=== PATIENT | male | born 1970 | race Caucasian/White ===

== ENCOUNTER → 2019-06-15 14:26 | Outpatient (CLI) | payer MEDICAID, SELFPAY ==
[2019-06-15 14:40] LABS: Basophils # 0.1 K/mm3 (0-0.2); Basophils % 0.8 % (0.1-2.0); Eosinophils # 0.1 K/mm3 (0.0-0.4); Eosinophils % 1.8 % (0.1-12.0); Hematocrit 49.2 % (42.0-52.0); Lymphocytes # 1.3 K/mm3 (0.7-4.5); Lymphocytes % 17.4 % (10-50); Mean Corpuscular HGB Conc 32.6 g/dL (31.8-35.4); Mean Corpuscular Hemoglobin 31.8 pg (27.0-31.2); Mean Corpuscular Volume 97.4 fl (80-94); Mean Platelet Volume 8.4 fl (7.4-10.4); Monocytes # 0.6 K/mm3 (0.1-1.0); Monocytes % 7.9 % (1.7-9.3); Neutrophils # 5.4 K/mm3 (1.8-7.8); Neutrophils % 72.2 % (37.0-80.0); Platelet Count 242 K/mm3 (142-424); Red Blood Count 5.05 M/mm3 (4.60-6.20); Red Cell Distribution Width 12.3 % (11.5-17.5); White Blood Count 7.4 K/mm3 (4.8-10.8)
[2019-06-15 14:48] LABS: Chloride 101 mmol/L (98-107); Potassium 4.3 mmoL/L (3.5-5.1); Sodium 135 mmol/L (136-145)
[2019-06-15 14:51] LABS: Alanine Aminotransferase 40 U/L (12-78); Albumin Level 4.3 g/dl (3.5-5.0); Albumin/Globulin Ratio 1.4 (1.1-1.8); Alkaline Phosphatase 64 U/L (38-126); Anion Gap 15.3 mEq/L (5-15); Aspartate Amino Transferase 32 U/L (17-59); Bilirubin,Total 0.6 mg/dl (0.2-1.3); Blood Urea Nitrogen 10 mg/dl (9-20); Calcium 9.6 mg/dl (8.4-10.2); Carbon Dioxide 23 mmol/L (22.0-30.0); Cholesterol 187 mg/dl (140-200); Estimated Glomerular Filt Rate 102 ml/min (>60); GFR (African American) 123 ML/MIN (>60); Glucose 96 mg/dl (74-100); Total Protein,Serum 7.3 g/dl (6.3-8.2); Triglycerides 135 mg/dl (30-150); VLDL Cholesterol 27 mg/dL (0-40)
[2019-06-15 14:52] LABS: Chol/HDL Ratio 3.9 (1-3.5); HDL Cholesterol 48 mg/dl (40-60)
[2019-06-15 15:02] LABS: Direct LDL Cholesterol 118.81 mg/dL (100-129)
[2019-06-15 15:47] LABS: T4 (Thyroxine) 8.5 ug/dl (5.53-11.0)
== END ==
PROVIDERS: Visit Provider Physician Assistant
DX: I10 Essential (primary) hypertension (principal); E03.9 Hypothyroidism, unspecified; E55.9 Vitamin D deficiency, unspecified; Z79.899 Other long term (current) drug therapy
CPT/HCPCS: 80053; 80061; 82652; 84436; 84443; 85025

== ENCOUNTER 2019-11-12 09:19 | Emergency (ER) | payer MEDICAID, SELFPAY ==
[2019-11-12 09:28] VITALS: BP 153/72; PULSE 78; RESP 16; TEMP 36.7; O2SAT 99; BMI 25.1
--- NOTE | 2019-11-12 10:04 | HMH.EDGENADL ---
ED Disposition Clinical Impression: Bug bite Qualifiers: Encounter type: initial encounter Qualified Code(s): W57.XXXA - Bitten or stung by nonvenomous insect and other nonvenomous arthropods, initial encounter Disposition: Home, Self-Care Condition on Discharge: Good Instructions: DI for Insect Bites and Stings Additional Instructions: Kenalog cream. Benadryl by mouth for itching. Ice and ibuprofen as needed for pain. Follow-up with primary care provider if having severe pain or fever. Prescriptions: Triamcinolone Acetonide [Kenalog 0.1% cream 30gm tube] 1 applic TOPICAL TID #30 cream..g. Transmission Status: Received by [facility] Referrals: Adam Serna MD [Primary Care Provider] - - Critical Care Critical Care Time: No Attestation: On 11/12/19, the high probability of a clinically significant, sudden or life threatening deterioration of the following system(s) required my full and direct attention, intervention and personal management. The time I documented below is in addition to time spent performing reported procedures but includes the following listed in this critical care notation. Medical Decision Making - Ashish Inquiry Pt receiving controlled substance: No Vital Signs: 11/12/19 09:28 11/12/19 10:39 Temperature 98.1 F 98.1 F Temperature Source Oral Pulse Rate 78 Pulse Rate [Left Radial] 78 Respiratory Rate 16 16 Blood Pressure 153/72 H Blood Pressure [Left Arm] 153/72 H Blood Pressure Mean [Left Arm] 99 Blood Pressure Source Automatic Cuff Blood Pressure Source [Left Arm] Automatic Cuff Blood Pressure Position Sitting Blood Pressure Position [Left Arm] Sitting 02 Sat by Pulse Oximetry 99 Oxygen Delivery Method Room Air Room Air General Adult HPI - General Chief complaint: Skin/Abscess/Foreign Body Stated complaint: spider bite on shoulder Time Seen by Provider: 11/12/19 10:04 Mode of Arrival: Ambulatory Limitations: No Limitations Description of Symptoms (Recalled from ER Triage Doc. by RN): Pt reports possible spider bite on L shoulder blader. Redness and warmth noted to area. NO drainage noted. - History of Present Illness HPI narrative: Patient states that he was mowing with his shirt on about 4 days ago and got some sort of bite on his posterior left shoulder. He thought it might be a spider, but did not see anything that bit him. He has occasional itching. He has an irritation of the area that feels like a sunburn . He says that the area of redness has gotten just slightly larger in 4 days. He has not had a fever. - Related Data Previous Rx's Medication Instructions Recorded cholecalciferol (vitamin D3) 25 1,000 unit PO DAILY #90 cap 06/17/19 mcg (1,000 unit) capsule ergocalciferol (vitamin D2) 1,250 50,000 unit PO QWEEK 90 Days #12 09/07/19 mcg (50,000 unit) capsule cap levothyroxine 25 mcg tablet 25 mcg PO DAILY #90 tab 09/07/19 lisinopril 10 1 tab PO DAILY #90 tab 09/07/19 mg-hydrochlorothiazide 12.5 mg tablet omeprazole 40 mg capsule,delayed 40 mg PO DAILY #90 cap 09/07/19 release Triamcinolone Acetonide [Kenalog 1 applic TOPICAL TID #30 cream..g. 11/12/19 0.1% cream 30gm tube] Allergies Allergy/AdvReac Type Severity Reaction Status Date / Time tetanus and diphtheria Allergy Mild Verified 06/19/19 13:42 toxoids [TETANUS AND DIPHTHERIA TOXOIDS] [facility] History - Hepatitis A Screen Drug use history?: No High risk sexual behaviors?: No History of sexually transmitted infection?: No Currently employed?: No Childcare worker?: No Do you have indoor plumbing?: Yes Do you have electricity?: Yes Attestation statement:: This patient has been screened for Hepatitis A risk factors. I have reviewed the patient's past medical history: Yes Medical History: Reports:: Hypertension Denies:: Diabetes Mellitus Type 1, Diabetes Mellitus Type 2 Other Medical History: Reports: Hypothyroidism Other Surgeries:
[2019-11-12 10:39] VITALS: BP 153/72; PULSE 78; RESP 16; TEMP 36.7; O2SAT 99
== END 2019-11-12 10:40 | disposition home or self-care (01) ==
PROVIDERS: Emergency Provider Emergency Medicine; PCP Emergency Medicine
DX: S40.262A Insect bite (nonvenomous) of left shoulder, initial encounter (principal); W57.XXXA Bitten or stung by nonvenomous insect and other nonvenomous arthropods, initial encounter; I10 Essential (primary) hypertension; E03.9 Hypothyroidism, unspecified; F17.210 Nicotine dependence, cigarettes, uncomplicated; Z88.7 Allergy status to serum and vaccine
CPT/HCPCS: 99281

== ENCOUNTER 2019-12-26 16:35 | Emergency (ER) | payer MEDICAID, SELFPAY ==
[2019-12-26 16:43] VITALS: BP 146/78; PULSE 91; RESP 16; TEMP 36.9; O2SAT 99; BMI 27.6
[2019-12-26 16:58] VITALS: BP 146/78; PULSE 91; RESP 16; TEMP 36.9; O2SAT 99; BMI 27.6
--- NOTE | 2019-12-26 17:24 | HMH.EDUTC ---
[facility] [place]ression: Skin problem Disposition: Home, Self-Care Condition on Discharge: Good Instructions: Lyme Disease, DI for Lyme Disease Additional Instructions: Take medication as prescribed FOllow up with Family Doctor to get the result of your test next week Return if needed Straight to ER if any worsening of symptoms Prescriptions: Doxycycline Hyclate [Doxycycline 100mg Capsule] 100 mg PO BID 10 Days #20 cap Transmission Status: Received by [facility] Referrals: Adam Serna MD [Primary Care Provider] - As needed Time of Disposition: 17:39 Medical Decision Making - Ashish Inquiry Pt receiving controlled substance: No Ashish was queried for this patient: No Vital Signs: 12/26/19 16:43 12/26/19 16:58 12/26/19 17:50 Temperature 98.5 F 98.5 F 98.5 F Temperature Source Oral Oral Pulse Rate 91 H Pulse Rate [Left Radial] 91 H 91 H Respiratory Rate 16 16 16 Blood Pressure 146/78 H Blood Pressure [Right Arm] 146/78 H 146/78 H Blood Pressure Mean [Right Arm] 100 100 Blood Pressure Source [Right Arm] Automatic Cuff Automatic Cuff Blood Pressure Position [Right Arm] Sitting Sitting 02 Sat by Pulse Oximetry 99 99 Oxygen Delivery Method Room Air Room Air Orders (Tests/Meds): ORDERS Category Date Time Status Lyme, Total Ab Test/Reflex Stat Lab 12/26/19 17:40 Received Medical Decision Narrative: Discussed with patient and he advised he was bitten by something the last of October on his left shoulder area and was seen in ER then with PCP states that he has taken antibiotics and steriod cream and it hasnt helped and red circular area has continued to spread States that he is unsure what may have bitten Patient unsure if may have been bitten by tick and with appearance of redness in circular pattern recommended blood testing for lyme disease and will start patient on Doxycycline and have him follow up with PCP for results of testing and to see if medication is helping to clear skin redness [facility] [place] - General Stated complaint: spider bite left arm,stinging Time Seen by Provider: 12/26/19 17:24 Mode of Arrival: Ambulatory Source of Information: Patient Limitations: No Limitations Description of Symptoms (Recalled from Triage Doc. by RN): PATIENT C/O ITCHING AND REDNESS AROUND A POSSIBLE SPIDER THAT HE GOT APPROX 2 WEEKS AGO HEENT Symptoms (Recalled from RN notes): No Resp Symptoms (Recalled from RN notes): No Skin Symptoms (Recalled from RN notes): Yes MS Symptoms (Recalled from RN notes): No Functional Status (Recalled from RN notes): WNL - History of Present Illness Provider Complaint: Patient states that he was bitten by something and thinks it was a spider several weeks ago States that he was given some keflex and finished off the medication but is still having some itching and redness around the bite area States that he noticed today that the redness was still there and looked bigger and spread on his back - Related Data Previous Rx's Medication Instructions Recorded cholecalciferol (vitamin D3) 25 1,000 unit PO DAILY #90 cap 06/17/19 mcg (1,000 unit) capsule ergocalciferol (vitamin D2) 1,250 50,000 unit PO QWEEK 90 Days #12 09/07/19 mcg (50,000 unit) capsule cap Triamcinolone Acetonide [Kenalog 1 applic TOPICAL TID #30 cream..g. 11/12/19 0.1% cream 30gm tube] cephalexin 500 mg capsule 500 mg PO TID #30 cap 11/21/19 valacyclovir 1 gram tablet 1,000 mg PO Q8H #30 tab 11/21/19 levothyroxine 25 mcg tablet See Rx Instructions .ROUTE 12/05/19 .COMPLEX #90 unspecified lisinopril 10 See Rx Instructions .ROUTE 12/05/19 mg-hydrochlorothiazide 12.5 mg .COMPLEX #90 unspecified tablet omeprazole 40 mg capsule,delayed See Rx Instructions .ROUTE 12/05/19 release .COMPLEX #90 unspecified Doxycycline Hyclate [Doxycycline 100 mg PO BID 10 Days #20 cap 12/26/19 100mg Capsule] Allergies Allergy/AdvReac Type Severity Reaction Status Date / Time t
[2019-12-26 17:50] VITALS: BP 146/78; PULSE 91; RESP 16; TEMP 36.9; O2SAT 99
[2020-01-04 03:59] LABS: IgG P18 Ab. Present (.); IgG P23 Ab. Absent (.); IgG P28 Ab. Absent (.); IgG P30 Ab. Absent (.); IgG P39 Ab. Absent (.); IgG P41 Ab. Present (.); IgG P45 Ab. Absent (.); IgG P58 Ab. Absent (.); IgG P66 Ab. Absent (.); IgG P93 Ab. Absent (.); IgM P23 Ab. Present (.); IgM P39 Ab. Absent (.); IgM P41 Ab. Absent (.)
[2020-01-04 08:41] LABS: Lyme IgG WB Interp. Negative (.); Lyme IgM WB Interp. Negative (.)
== END 2019-12-26 17:52 | disposition home or self-care (01) ==
PROVIDERS: Emergency Provider Nurse Practitioner; PCP Emergency Medicine
DX: S40.262A Insect bite (nonvenomous) of left shoulder, initial encounter (principal); L08.9 Local infection of the skin and subcutaneous tissue, unspecified; I10 Essential (primary) hypertension; E03.9 Hypothyroidism, unspecified; F17.210 Nicotine dependence, cigarettes, uncomplicated; Z88.7 Allergy status to serum and vaccine
CPT/HCPCS: 86617; 86618; 99201

== ENCOUNTER 2020-02-22 01:45 | Emergency (ER) | payer MEDICAID, SELFPAY ==
[2020-02-22 01:47] VITALS: BP 143/76; PULSE 91; RESP 18; TEMP 37.8; O2SAT 97; BMI 27.6
[2020-02-22 02:30] VITALS: BP 140/76; PULSE 83; RESP 17; O2SAT 97
[2020-02-22 03:00] VITALS: BP 130/79; PULSE 81; RESP 17; O2SAT 96
--- NOTE | 2020-02-22 03:06 | HMH.EDGENADL ---
ED Disposition Clinical Impression: Cryptitis, anal Disposition: Home, Self-Care Condition on Discharge: Good Instructions: DI for Acute Pain -- Adult Additional Instructions: use meds and see surg and pcp for follow up Prescriptions: cephALEXin [Keflex 500mg Cap] 500 mg PO TID #30 cap Transmission Status: Pending to [facility] Referrals: Adam Serna MD [Primary Care Provider] - Lico Johnson MD [Staff Physician] - - Critical Care Critical Care Time: No Attestation: On 02/22/20, the high probability of a clinically significant, sudden or life threatening deterioration of the following system(s) required my full and direct attention, intervention and personal management. The time I documented below is in addition to time spent performing reported procedures but includes the following listed in this critical care notation. Medical Decision Making - Medical Records Medical records reviewed: Yes: I reviewed the patient's medical records. - Ashish Inquiry Pt receiving controlled substance: No Vital Signs: 02/22/20 01:47 02/22/20 02:30 Temperature 100.0 F H Temperature Source Oral Pulse Rate [Left Radial] 91 H 83 Respiratory Rate 18 17 Blood Pressure [Right Arm] 143/76 H 140/76 Blood Pressure Mean [Right Arm] 98 97 Blood Pressure Source [Right Arm] Automatic Cuff Automatic Cuff Blood Pressure Position [Right Arm] Supine Supine 02 Sat by Pulse Oximetry 97 97 Oxygen Delivery Method Room Air Room Air - Lab Data Lab results reviewed: Yes: I reviewed the patient's lab results. General Adult HPI - General Chief complaint: PAIN Stated complaint: Pain in rectal area Time Seen by Provider: 02/22/20 03:06 Mode of Arrival: Ambulatory Source of Information: Patient, Medical Record Limitations: No Limitations Description of Symptoms (Recalled from ER Triage Doc. by RN): Pt c/o rectal pain for 5 days. Pt states he was doing some heavy lifting last week and thinks he has a hemroid. Pt denies blood in stool. - History of Present Illness HPI narrative: rectal pain over the last 5 days w/o fever or bleeding Onset (ago): day(s) Severity: moderate Associated symptoms: denies other symptoms - Related Data Home Medications Medication Instructions Recorded Confirmed Cholecalciferol (Vitamin D3) 1,000 unit PO DAILY 02/22/20 02/22/20 [Vitamin D3 1,000 Unit Cap] Ergocalciferol (Vitamin D2) 50,000 unit PO QWEEK 02/22/20 02/22/20 [Drisdol] Levothyroxine Sodium [Synthroid 25 mcg PO DAILY 02/22/20 02/22/20 25mcg (0.025mg) tablet] Lisinopril/Hydrochlorothiazide 10 - 12.5 mg PO DAILY 02/22/20 02/22/20 [Lisinopril-Hctz 10-12.5 mg Tab] Omeprazole 40 mg PO DAILY 02/22/20 02/22/20 Previous Rx's Medication Instructions Recorded cephALEXin [Keflex 500mg Cap] 500 mg PO TID #30 cap 02/22/20 Allergies Allergy/AdvReac Type Severity Reaction Status Date / Time tetanus and diphtheria Allergy Mild Verified 11/21/19 14:37 toxoids [TETANUS AND DIPHTHERIA TOXOIDS] [facility] History - Hepatitis A Screen Drug use history?: No High risk sexual behaviors?: No History of sexually transmitted infection?: No Currently employed?: No Childcare worker?: No Do you have indoor plumbing?: Yes Do you have electricity?: Yes Attestation statement:: This patient has been screened for Hepatitis A risk factors. I have reviewed the patient's past medical history: Yes Medical History: Reports:: Hypertension Denies:: Cancer, Diabetes Mellitus Type 1, Diabetes Mellitus Type 2, Internal Pacemaker, MRSA Other Medical History: Reports: Hypothyroidism Other Surgeries: Yes: No Previous Surgery. No: Pacemaker Amputation: No Fractures: No - Social History Smoking Status: Current every day smoker Tobacco Type: cigarettes # Packs/Day (cigarettes): 2 Alcohol Intake: current Alcohol Intake Frequency:: 3 or more drinks per day Substance Use Type: denies use Occupational Status: e
[2020-02-22 03:13] VITALS: BP 100/67; PULSE 78; RESP 16; TEMP 36.8; O2SAT 98
== END 2020-02-22 03:29 | disposition home or self-care (01) ==
PROVIDERS: Emergency Provider Emergency Medicine; PCP Emergency Medicine
DX: K62.89 Other specified diseases of anus and rectum (principal); I10 Essential (primary) hypertension; E03.9 Hypothyroidism, unspecified; F17.210 Nicotine dependence, cigarettes, uncomplicated; Z88.7 Allergy status to serum and vaccine
CPT/HCPCS: 99282

== ENCOUNTER 2020-09-03 09:32 | Emergency (ER) | payer MEDICAID, SELFPAY ==
[2020-09-03 09:50] VITALS: BP 145/78; PULSE 78; RESP 20; TEMP 36.7; O2SAT 96; BMI 27.6
--- NOTE | 2020-09-03 10:08 | HMH.EDUTC ---
[facility] [place]: Muscle [place] Disposition: Home, Self-Care Condition on Discharge: Good Instructions: DI for Muscle Spasm Additional Instructions: if pain returns worsen or does not improve return or be seen in ed tylenol and motrin as needed for pain ice 20 mins and remove may repeat every hour Prescriptions: predniSONE [Prednisone 20mg Tab] 20 mg PO BID #10 tab Transmission Status: Pending to [facility] Referrals: Adam Serna MD [Primary Care Provider] - Forms: Work/School Release Time of Disposition: 10:13 Medical Decision Making - Ashish Inquiry Pt receiving controlled substance: No Vital Signs: 09/03/20 09:50 Temperature 98.1 F Temperature Source Oral Pulse Rate [Right Brachial] 78 Respiratory Rate 20 Blood Pressure [Right Arm] 145/78 H Blood Pressure Mean [Right Arm] 100 Blood Pressure Source [Right Arm] Automatic Cuff Blood Pressure Position [Right Arm] Sitting 02 Sat by Pulse Oximetry 96 Oxygen Delivery Method Room Air [facility] [place] - General Chief complaint: [facility] Stated complaint: allergies Time Seen by Provider: 09/03/20 10:08 Mode of Arrival: Ambulatory Source of Information: Patient Limitations: No Limitations Description of Symptoms (Recalled from Triage Doc. by RN): PATIENT C/O INTERMITTEN NECK STIFFNESS, HEADACHE, AND SWELLING BEHIND BILATERAL EARS SINCE THIS WEEKEND HEENT Symptoms (Recalled from RN notes): Yes Resp Symptoms (Recalled from RN notes): No Skin Symptoms (Recalled from RN notes): No MS Symptoms (Recalled from RN notes): No Functional Status (Recalled from RN notes): WNL - History of Present Illness Provider Complaint: 50 yr old male presents for suzan pain behind ears, stiff neck that comes and goes, and soreness. pt states this am stiff neck is fine but later the stiff will prob return. pt denies fever - Related Data Home Medications Medication Instructions Recorded Confirmed Levothyroxine Sodium [Synthroid 25 mcg PO DAILY 09/03/20 09/03/20 25mcg (0.025mg) tablet] Lisinopril/Hydrochlorothiazide 1 tab PO DAILY 09/03/20 09/03/20 [Lisinopril-Hctz 10-12.5 mg Tab] Omeprazole 40 mg PO DAILY 09/03/20 09/03/20 Previous Rx's Medication Instructions Recorded predniSONE [Prednisone 20mg 20 mg PO BID #10 tab 09/03/20 Tab] Allergies Allergy/AdvReac Type Severity Reaction Status Date / Time tetanus and diphtheria Allergy Mild Verified 06/27/20 14:33 toxoids [TETANUS AND DIPHTHERIA TOXOIDS] - Worker's Comp Is this a Worker's Comp case?: No [facility] History - Hepatitis A Screen Drug use history?: No High risk sexual behaviors?: No History of sexually transmitted infection?: No Currently employed?: No Childcare worker?: No Do you have indoor plumbing?: Yes Do you have electricity?: Yes Attestation statement:: This patient has been screened for Hepatitis A risk factors. I have reviewed the patient's past medical history: Yes Medical History: Reports:: Hypertension Denies:: Cancer, Diabetes Mellitus Type 1, Diabetes Mellitus Type 2, Internal Pacemaker, MRSA Other Medical History: Reports: Hypothyroidism Other Surgeries: Yes: No Previous Surgery. No: Pacemaker Amputation: No Fractures: No - Social History Smoking Status: Current every day smoker Tobacco Type: cigarettes # Packs/Day (cigarettes): 2 Alcohol Intake: never Alcohol Intake Frequency:: 3 or more drinks per day Substance Use Type: denies use Occupational Status: other Housing: house Family Hx:: Non-contributory ROS Obtained: Yes Systems reviewed as appropriate & no additional complaints - Constitutional Constitutional: Reports system reviewed and no additional complaints, except as docu, Denies anorexia, Denies chills, Denies fever(s) - Eyes Eyes: Reports system reviewed and no additional complaints, except as docu, Denies blurry vision, Denies loss of vision - ENT Ears, Nose, Mouth, and Thro
[2020-09-03 10:11] LABS: UTC Strep Screen (Rapid) Negative (Negative)
[2020-09-03 10:14] VITALS: BP 145/78; PULSE 78; RESP 20; TEMP 36.7; O2SAT 96
== END 2020-09-03 10:18 | disposition home or self-care (01) ==
PROVIDERS: Emergency Provider Nurse Practitioner Family; PCP Emergency Medicine
DX: M62.838 Other muscle spasm (principal); M54.2 Cervicalgia; R51.9 Headache, unspecified; I10 Essential (primary) hypertension; K21.9 Gastro-esophageal reflux disease without esophagitis; E03.9 Hypothyroidism, unspecified; Z79.899 Other long term (current) drug therapy
CPT/HCPCS: 87880; 99202; G0463

== ENCOUNTER 2020-11-12 09:30 | Emergency (ER) | payer MEDICAID, SELFPAY ==
[2020-11-12 09:30] VITALS: BP 147/79; PULSE 61; RESP 21; TEMP 36.8; O2SAT 98; BMI 27.6
--- NOTE | 2020-11-12 09:45 | XR_ITS ---
PROCEDURE: XR SHOULDER RT MIN 2V CLINICAL INDICATION: PAIN COMPARISON: No exams were available for comparison FINDINGS: No acute fractures or dislocations. Bone density is normal. No periarticular calcifications. Visualized right hemithorax is unremarkable. No significant soft tissue abnormality. IMPRESSION: No acute findings. Dictated by: Tamara Leon 11/12/2020 10:20 Tamara Leon in OV 11/12/2020 10:20
--- NOTE | 2020-11-12 09:46 | HMH.EDUTC ---
[facility] [place] Clinical Impression: Muscle spasm Shoulder strain Qualifiers: Encounter type: initial encounter Laterality: right Qualified Code(s): S46.911A - Strain of unspecified muscle, fascia and tendon at shoulder and upper arm level, right arm, initial encounter Disposition: Home, Self-Care Condition on Discharge: Good Instructions: DI for Shoulder Pain, Methocarbamol, DI for Muscle Spasm Additional Instructions: *Ibuprofen dalia 6 hours with meal as needed for pain/inflammation *Not additional anti-inflammatory like motrin, aleve, advil with the above amount of ibuprofen. You can still take Tylenol every 4 hours as needed if you need something else for pain *Ice 20 minutes every 2 hours for the first 48 hours after the initial injury followed by moist heat every 20 minutes 3-4 times a day to affected area *Muscle relaxer as prescribed as needed for muscle spasms but remember, it WILL cause drowsiness You cannot take it and drive, operate machinery or care for small children. *Keep this area active, no movement leads to more stiffness, However take it easy and avoid heavy lifting pushing or pulling *Follow up with you family doctor if no improvement for further treatment Return if needed Straight to ER if any life threatening symptoms Prescriptions: methylPREDNISolone [Medrol 4mg tab] 4 mg PO DIRECTED #21 tab Transmission Status: Received by [facility] methocarbamoL [Methocarbamol 500mg Tablet] 500 mg PO BID PRN #10 tab PRN Reason: Muscle Spasm Transmission Status: Received by [facility] Referrals: Adam Serna MD [Primary Care Provider] - As needed Time of Disposition: 10:06 Medical Decision Making - Ashish Inquiry Pt receiving controlled substance: No Ashish was queried for this patient: No Vital Signs: 11/12/20 09:30 11/12/20 10:15 Temperature 98.3 F 98.3 F Temperature Source Oral Pulse Rate 61 Pulse Rate [Right Brachial] 61 Respiratory Rate 21 21 Blood Pressure 147/79 H Blood Pressure [Right Arm] 147/79 H Blood Pressure Mean [Right Arm] 101 Blood Pressure Source [Right Arm] Automatic Cuff Blood Pressure Position [Right Arm] Sitting 02 Sat by Pulse Oximetry 98 Oxygen Delivery Method Room Air - Radiology Data #1 Image(s): Shoulder Image Reviewed: Yes I reviewed the patient's radiology image Preliminary Findings: No Fracture Seen Medical Decision Narrative: Patient states that he has taken Medrol in the past without complication or reactions [facility] [place] - General Stated complaint: pulled muscle 11/08, neck/shoulder pain Time Seen by Provider: 11/12/20 09:46 Mode of Arrival: Ambulatory Source of Information: Patient Limitations: No Limitations Description of Symptoms (Recalled from Triage Doc. by RN): PATIENT C/O NECK, BACK AND SHOULDER PAIN AFTER PULLING A MUSCLE ON THURSDAY HEENT Symptoms (Recalled from RN notes): No Resp Symptoms (Recalled from RN notes): No Skin Symptoms (Recalled from RN notes): No MS Symptoms (Recalled from RN notes): Yes Functional Status (Recalled from RN notes): WNL - History of Present Illness Provider Complaint: Patient states that he was in an odd position working on something on and pulled a muscle in his neck and upper back area States that he has been having muscle tightness and spasms since and he had a previous injury to his right shoulder and thinks he may have aggrivated it states that when he moves his shoulder he feels like it is 'popping and wanted to get that checked too States that he can move the shoulder but it feels tight and hurts at times denies falling - Related Data Home Medications Medication Instructions Recorded Confirmed Levothyroxine Sodium [Synthroid 25 mcg PO DAILY 11/12/20 11/12/20 25mcg (0.025mg) tablet] Lisinopril/Hydrochlorothiazide 1 tab PO DAILY 11/12/20 11/12/20 [Zestoretic 10/12.5mg tablet] Omeprazole 40 mg PO DAILY 11/12/20 11/12/20 Previous Rx's [facility]
[2020-11-12 10:15] VITALS: BP 147/79; PULSE 61; RESP 21; TEMP 36.8; O2SAT 98
== END 2020-11-12 10:27 | disposition home or self-care (01) ==
PROVIDERS: Emergency Provider Nurse Practitioner; PCP Emergency Medicine
DX: S46.911A Strain of unspecified muscle, fascia and tendon at shoulder and upper arm level, right arm, initial encounter (principal); X50.0XXA Overexertion from strenuous movement or load, initial encounter; Y92.9 Unspecified place or not applicable; I10 Essential (primary) hypertension
CPT/HCPCS: 73030; 99202; G0463

== ENCOUNTER 2021-03-08 10:07 | Emergency (ER) | payer MEDICAID, SELFPAY ==
[2021-03-08 10:20] VITALS: BP 150/85; PULSE 73; RESP 19; TEMP 37; O2SAT 97; BMI 27.6
--- NOTE | 2021-03-08 10:46 | HMH.EDUTC ---
[place] Disposition Clinical Impression: Dizziness Disposition: Home, Self-Care Condition on Discharge: Good Instructions: Combating Dizziness in Older Adults Additional Instructions: Make sure to not make any sudden movements slow steady movements may help prevent dizziness Return if needed Recommend going straight to ER if symptoms return or worse Straight to ER if any life threatening symptoms Take Meclizine as prescribed and follow up if no improvement Prescriptions: Meclizine HCl [Antivert 12.5mg tablet] 12.5 mg PO Q8HP PRN #6 tab PRN Reason: Dizziness Transmission Status: Received by [facility] Referrals: Adam Serna MD [Primary Care Provider] - As needed Forms: Work/School Release Medical Decision Making - Ashish Inquiry Pt receiving controlled substance: No Ashish was queried for this patient: No Vital Signs: 03/08/21 10:20 03/08/21 11:23 Temperature 98.6 F 98.6 F Temperature Source Oral Pulse Rate 73 Pulse Rate [Right Brachial] 73 Respiratory Rate 19 19 Blood Pressure 150/85 H Blood Pressure [Right Arm] 150/85 H Blood Pressure Mean [Right Arm] 106 Blood Pressure Source [Right Arm] Automatic Cuff Blood Pressure Position [Right Arm] Sitting 02 Sat by Pulse Oximetry 97 Oxygen Delivery Method Room Air Orders (Tests/Meds): ED MEDICATIONS Discontinued Medications Generic Name Dose Route Start Last Admin Trade Name Freq PRN Reason Stop Dose Admin Meclizine HCl 12.5 mg 03/08/21 10:53 03/08/21 10:57 Meclizine 25mg Tablet PO 03/08/21 10:54 12.5 mg ONCE ONE Administration Medical Decision Narrative: Discussed with patient and recommended transfer to the ED for further work up and evaluation and patient declined States that he has had episodes like this in the past and took Meclizine and it helped Medication discussed with pharmacy Patient states that dizziness is much better and now gone after medication again discussed with patient about transfer to the ED for further work up and he still declined states that he feels much better now [place] HPI - General Stated complaint: light headed, dizzy Time Seen by Provider: 03/08/21 10:46 Mode of Arrival: Ambulatory Source of Information: Patient Limitations: No Limitations Description of Symptoms (Recalled from Triage Doc. by RN): PATIENT C/O DIZZINESS THAT STARTED HE WAS DRIVING TO WORK THIS MORNING HEENT Symptoms (Recalled from RN notes): Yes Resp Symptoms (Recalled from RN notes): No Skin Symptoms (Recalled from RN notes): No MS Symptoms (Recalled from RN notes): No Functional Status (Recalled from RN notes): WNL - History of Present Illness Provider Complaint: Patient states that he has a history of dizziness and use to take Meclizine States that earlier today he was driving into work and had an episode of dizziness and felt like it took a minute for his eyes to adjust States that it has been a little while since he has had any problems with it but yesterday he was working on something and had his neck crinked up States that now he is feeling better and dizziness has improved but he wanted to come in and get checked - Related Data Home Medications Medication Instructions Recorded Confirmed Levothyroxine Sodium [Synthroid 25 mcg PO DAILY 03/08/21 03/08/21 25mcg (0.025mg) tablet] Lisinopril/Hydrochlorothiazide 1 tab PO DAILY 03/08/21 03/08/21 [Zestoretic 10/12.5mg tablet] Previous Rx's Medication Instructions Recorded Meclizine HCl [Antivert 12.5mg 12.5 mg PO Q8HP PRN #6 tab 03/08/21 tablet] Allergies Allergy/AdvReac Type Severity Reaction Status Date / Time tetanus and diphtheria Allergy Mild Verified 06/27/20 14:33 toxoids [TETANUS AND DIPHTHERIA TOXOIDS] - Worker's Comp Is this a Worker's Comp case?: No [facility] History - Hepatitis A Screen Drug use history?: No High risk sexual behaviors?: No History of sexually transmitted infection?: No Curr
[2021-03-08 11:23] VITALS: BP 150/85; PULSE 73; RESP 19; TEMP 37; O2SAT 97
== END 2021-03-08 11:27 | disposition home or self-care (01) ==
PROVIDERS: Emergency Provider Nurse Practitioner; PCP Emergency Medicine
DX: R42 Dizziness and giddiness (principal); I10 Essential (primary) hypertension; E03.9 Hypothyroidism, unspecified; F17.210 Nicotine dependence, cigarettes, uncomplicated; Z88.7 Allergy status to serum and vaccine
CPT/HCPCS: 99202; G0463

== ENCOUNTER 2021-03-13 10:02 | Emergency (ER) | payer MEDICAID, SELFPAY ==
[2021-03-13 10:04] VITALS: BP 137/80; PULSE 79; RESP 16; TEMP 36.8; O2SAT 99; BMI 27.4
[2021-03-13 10:52] LABS: Basophils # 0.1 K/mm3 (0-0.2); Basophils % 1.1 % (0.1-2.0); Eosinophils # 0.1 K/mm3 (0.0-0.4); Eosinophils % 1.8 % (0.1-12.0); Hematocrit 53.6 % (42.0-52.0); Lymphocytes # 1.6 K/mm3 (0.7-4.5); Lymphocytes % 26.1 % (10-50); Mean Corpuscular HGB Conc 34.1 g/dL (31.8-35.4); Mean Corpuscular Hemoglobin 32.9 pg (27.0-31.2); Mean Corpuscular Volume 96.6 fl (80-94); Mean Platelet Volume 8.1 fl (7.4-10.4); Monocytes # 0.4 K/mm3 (0.1-1.0); Monocytes % 6.4 % (1.7-9.3); Neutrophils # 3.9 K/mm3 (1.8-7.8); Neutrophils % 64.6 % (37.0-80.0); Platelet Count 262 K/mm3 (142-424); Red Blood Count 5.55 M/mm3 (4.60-6.20); Red Cell Distribution Width 12.6 % (11.5-17.5)
[2021-03-13 10:59] LABS: Activated Partial Thrombo Time 27.6 seconds (22.8-30.6); INR 0.94 (0.9-1.1); Prothrombin Time 10.7 seconds (10.1-12.5)
[2021-03-13 11:02] LABS: Alanine Aminotransferase 36 U/L (12-78); Albumin Level 4.5 g/dl (3.5-5.0); Albumin/Globulin Ratio 1.3 (1.1-1.8); Alkaline Phosphatase 68 U/L (38-126); Anion Gap 12.2 mEq/L (5-15); Aspartate Amino Transferase 41 U/L (17-59); Bilirubin,Total 0.8 mg/dl (0.2-1.3); Blood Urea Nitrogen 14 mg/dl (9-20); Calcium 9.5 mg/dl (8.4-10.2); Carbon Dioxide 28 mmol/L (22.0-30.0); Chloride 99 mmol/L (98-107); Creatinine Clearance Estimated 147 mL/min (50-200); Estimated Glomerular Filt Rate 118 ml/min (>60); GFR (African American) 143 ML/MIN (>60); Globulin 3.4 g/dL (1.3-3.2); Glucose 112 mg/dl (74-100); Potassium 4.2 mmoL/L (3.5-5.1); Sodium 135 mmol/L (136-145); Total Protein,Serum 7.9 g/dl (6.3-8.2)
[2021-03-13 11:17] LABS: Troponin I < 0.01 ng/ml (0.00-0.034)
[2021-03-13 11:28] LABS: Hemoglobin 18.6 g/dL (14.1-18.0)
[2021-03-13 11:30] VITALS: BP 133/72; PULSE 72; O2SAT 94
[2021-03-13 11:45] VITALS: BP 133/72; PULSE 66; RESP 18; O2SAT 95
--- NOTE | 2021-03-13 11:49 | ECG_ITS ---
APPROVED REPORT Exam: Resting ECG HR:64 bpm ECG Measurements Heart Rate 64 AXES LA 136 P 67 QRSd 88 QRS 41 QT 394 T 33 QTc 406 Conclusion Normal sinus rhythm Normal ECG Electronically signed by : Pedro Garcia MD 03/14/2021 21:39:42
--- NOTE | 2021-03-13 13:01 | HMH.EDGENADL ---
ED Disposition Clinical Impression: GERD (gastroesophageal reflux disease) Disposition: Home, Self-Care Condition on Discharge: Good Referrals: Adam Serna MD [Primary Care Provider] - - Critical Care Critical Care Time: No Attestation: On 03/13/21, the high probability of a clinically significant, sudden or life threatening deterioration of the following system(s) required my full and direct attention, intervention and personal management. The time I documented below is in addition to time spent performing reported procedures but includes the following listed in this critical care notation. Medical Decision Making - Ashish Inquiry Pt receiving controlled substance: No Vital Signs: 03/13/21 10:04 03/13/21 11:30 03/13/21 11:45 Temperature 98.2 F Temperature Source Oral Pulse Rate 72 66 Pulse Rate [Right Radial] 79 Respiratory Rate 16 18 Blood Pressure 133/72 133/72 Blood Pressure [Right Arm] 137/80 Blood Pressure Mean 92 Blood Pressure Mean [Right Arm] 99 Blood Pressure Source [Right Arm] Automatic Cuff Blood Pressure Position [Right Arm] Sitting 02 Sat by Pulse Oximetry 99 94 L 95 Oxygen Delivery Method Room Air - Lab Data Lab Results 03/13/21 10:16: WBC 6.0, RBC 5.55, Hgb 18.6 H, Hct 53.6 H, MCV 96.6 H, MCH 32.9 H, MCHC 34.1, RDW 12.6, Plt Count 262, MPV 8.1, Neut % (Auto) 64.6, Lymph % (Auto) 26.1, Beadle % (Auto) 6.4, Eos % (Auto) 1.8, Baso % (Auto) 1.1, Neut # (Auto) 3.9, Lymph # (Auto) 1.6, Beadle # (Auto) 0.4, Eos # (Auto) 0.1, Baso # (Auto) 0.1 03/13/21 10:16: PT 10.7, INR 0.94, APTT 27.6 03/13/21 10:16: Sodium 135 L, Potassium 4.2, Chloride 99, Carbon Dioxide 28, Anion Gap 12.2, BUN 14, Creatinine 0.70, Estimated Creat Clear 147, Estimated GFR 118, Est GFR ( Amer) 143, Glucose 112 H, Calcium 9.5, Total Bilirubin 0.8, AST 41, ALT 36, Alkaline Phosphatase 68, Troponin I < 0.01, Total Protein 7.9, Albumin 4.5, Globulin 3.4 H, Albumin/Globulin Ratio 1.3 Result diagrams: 03/13/21 10:16 03/13/21 10:16 Orders (Tests/Meds): ED MEDICATIONS Discontinued Medications Generic Name Dose Route Start Last Admin Trade Name Amina PRN Reason Stop Dose Admin Aspirin 325 mg 03/13/21 10:35 03/13/21 11:32 Aspirin 325mg Tablet PO 03/13/21 10:36 325 mg ONCE ONE Administration Belladonna Alkaloids 60 ml 03/13/21 10:34 03/13/21 11:32 Gi Cocktail 60ml Udc PO 03/13/21 10:35 60 ml ONCE ONE Administration ORDERS Category Date Time Status Troponin I Q3H Lab 03/13/21 13:45 Ordered Troponin I Q3H Lab 03/13/21 16:45 Ordered Medical Decision Narrative: Patient is a 50-year-old male with past medical history of hypertension, hypothyroidism presenting to the ED for dizziness, chest pain. Patient is awake, alert, not in acute distress. Patient is hemodynamically stable, afebrile. Patient's physical exam is unremarkable. Includes but is not limited to chest pain secondary to sliding hiatal hernia, gastritis, low concern for ACS, unstable angina. Given this a CBC, CMP, troponin were performed. Patient was given aspirin, GI cocktail. His lab work is remarkable for a hemoglobin of 18, elevated hematocrit. Patient has no prior values in the computer to compare. First troponin is negative. Patient feels much better after the GI cocktail. Patient's likely source of chest pain was his hiatal hernia. Patient is to follow-up with his primary care physician regarding the elevated hemoglobin. Patient feels comfortable with this and is understanding of this. Patient is stable for discharge. Patient is given strict return precautions and follow-up instructions. General Adult HPI - General Chief complaint: Dizziness Stated complaint: head congestion, light headed, chest pain 03/12 Time Seen by Provider: 03/13/21 11:00 Mode of Arrival: Ambulatory Limitations: No Limitations Description of Symptoms (Recalled from ER Triage Doc. by RN): Pt c/o intermit
[2021-03-13 14:22] LABS: Troponin I < 0.01 ng/ml (0.00-0.034)
[2021-03-13 14:35] VITALS: BP 120/74; PULSE 68; RESP 14; TEMP 36.7; O2SAT 96
== END 2021-03-13 14:37 | disposition home or self-care (01) ==
PROVIDERS: Emergency Provider Emergency Medicine; PCP Emergency Medicine
DX: R07.9 Chest pain, unspecified (principal); R42 Dizziness and giddiness; K21.9 Gastro-esophageal reflux disease without esophagitis; I10 Essential (primary) hypertension; E03.9 Hypothyroidism, unspecified; F17.210 Nicotine dependence, cigarettes, uncomplicated
CPT/HCPCS: 80053; 84484; 85025; 85610; 85730; 93005; 99283

== ENCOUNTER → 2021-09-05 19:13 | Outpatient (CLI) | payer MEDICAID, SELFPAY ==
[2021-09-05 13:30] LABS: Basophils # 0.1 K/mm3 (0-0.2); Basophils % 0.9 % (0.1-2.0); Eosinophils # 0.1 K/mm3 (0.0-0.4); Eosinophils % 1.7 % (0.1-12.0); Hematocrit 53.2 % (42.0-52.0); Hemoglobin 17.6 g/dL (14.1-18.0); Lymphocytes # 1.5 K/mm3 (0.7-4.5); Lymphocytes % 20.1 % (10-50); Mean Corpuscular HGB Conc 33.1 g/dL (31.8-35.4); Mean Corpuscular Volume 102.5 fl (80-94); Mean Platelet Volume 9.4 fl (7.4-10.4); Monocytes # 0.5 K/mm3 (0.1-1.0); Monocytes % 6.8 % (1.7-9.3); Neutrophils # 5.4 K/mm3 (1.8-7.8); Neutrophils % 70.6 % (37.0-80.0); Platelet Count 241 K/mm3 (142-424); Red Blood Count 5.19 M/mm3 (4.60-6.20); Red Cell Distribution Width 13.2 % (11.5-17.5); White Blood Count 7.7 K/mm3 (4.8-10.8)
[2021-09-05 13:35] LABS: Alanine Aminotransferase 34 U/L (12-78); Albumin Level 4.2 g/dl (3.5-5.0); Albumin/Globulin Ratio 1.4 (1.1-1.8); Alkaline Phosphatase 80 U/L (38-126); Anion Gap 12.3 mEq/L (5-15); Aspartate Amino Transferase 32 U/L (17-59); Bilirubin,Total 0.5 mg/dl (0.2-1.3); Blood Urea Nitrogen 10 mg/dl (9-20); Calcium 9.6 mg/dl (8.4-10.2); Carbon Dioxide 27 mmol/L (22.0-30.0); Chloride 100 mmol/L (98-107); Cholesterol 201 mg/dl (140-200); Estimated Glomerular Filt Rate 118 ml/min (>60); GFR (African American) 143 ML/MIN (>60); Globulin 2.9 g/dL (1.3-3.2); Glucose 96 mg/dl (74-100); HDL Cholesterol 50 mg/dl (40-60); Potassium 4.3 mmoL/L (3.5-5.1); Sodium 135 mmol/L (136-145); Total Protein,Serum 7.1 g/dl (6.3-8.2); Triglycerides 161 mg/dl (30-150); VLDL Cholesterol 32 mg/dL (0-40)
[2021-09-05 13:46] LABS: Direct LDL Cholesterol 109.99 mg/dL (100-129)
[2021-09-05 13:53] LABS: 25-OH Vitamin D, Total 19.6 ng/mL (30-100)
[2021-09-05 14:06] LABS: Prostate Specific Ag Screen 0.9 ng/ml (0.0-4.0); Thyroid Stimulating Hormone 4.18 uIU/mL (0.465-4.68)
[2021-09-05 16:45] LABS: Vitamin B12 611 pg/mL (239-931)
== END ==
PROVIDERS: Visit Provider Physician Assistant
DX: E03.9 Hypothyroidism, unspecified (principal); R53.83 Other fatigue; Z12.5 Encounter for screening for malignant neoplasm of prostate; E55.9 Vitamin D deficiency, unspecified
CPT/HCPCS: 80053; 80061; 82306; 82607; 84443; 85025; G0103

== ENCOUNTER → 2021-09-13 06:50 | Outpatient (CLI) | payer MEDICAID, SELFPAY ==
--- NOTE | 2021-09-13 06:51 | CT_ITS ---
FINAL REPORT CLINICAL HISTORY: lung cancer screening FINDINGS: CT CHEST SCREENING CTDI vol (mGy): 2.90 DLP (mGy-cm): 107.86 Axial images were obtained from the lung apex to the mid abdomen by computed tomography. Low-dose protocol was utilized. FINDINGS: CHEST: There is no axillary adenopathy. There is no hilar or mediastinal adenopathy. The heart is proper size. There is no pericardial or pleural effusion. Limited images of the upper abdomen are unremarkable. Lung window images demonstrate no suspicious infiltrate or nodule. IMPRESSION: Lung RADS category 1. Recommend 12 month follow-up low-dose chest CT. Reviewed, Interpreted and Dictated by Lico Rodriguez III, MD Transcribed by Pinky Jiménez Authenticated by Lico Rodriguez III, MD on 09/13/2021 07:38:50 AM [facility]
[2021-09-13 07:50] VITALS: PULSE 64; PULSE 65
== END ==
PROVIDERS: PCP Emergency Medicine; Visit Provider Physician Assistant
DX: Z87.891 Personal history of nicotine dependence (principal); Z12.2 Encounter for screening for malignant neoplasm of respiratory organs
CPT/HCPCS: 71271; 94060; 94618; 94640; 94727; 94729

== ENCOUNTER → 2021-12-25 09:43 | Outpatient (CLI) | payer MEDICAID, SELFPAY | PROVIDERS: PCP Emergency Medicine; Visit Provider Surgery | DX: Z01.812 Encounter for preprocedural laboratory examination (principal); Z20.822 Contact with and (suspected) exposure to COVID-19 | CPT/HCPCS: C9803; U0003; U0005 ==

== ENCOUNTER 2021-12-27 13:30 | Emergency (ER) | payer MEDICAID, SELFPAY ==
[2021-12-27 13:31] VITALS: BP 150/82; PULSE 83; RESP 15; TEMP 36.9; O2SAT 97; BMI 27.6
--- NOTE | 2021-12-27 13:52 | HMH.EDGENADL ---
Discharge Plan Disposition Patient Disposition: Home, Self-Care Condition: Good Prescriptions Prescriptions: New prednisone 20 mg tablet 20 mg PO BID Qty: 10 0RF No Action levothyroxine 25 mcg tablet 25 mcg PO DAILY Qty: 90 0RF Rx Instructions: TAKE 1 TABLET BY MOUTH ONCE DAILY FOR THYROID lisinopril-hydrochlorothiazide 10-12.5 mg tablet 1 tab PO DAILY Qty: 90 0RF ergocalciferol (vitamin D2) 1,250 mcg (50,000 unit) capsule 1,250 mcg PO WEEKLY Rx Instructions: Take 2 capsule by mouth once a week. albuterol sulfate [Proventil HFA] 90 mcg/actuation HFA aerosol inhaler 2 puff IH Q6H PRN (Reason: SOA) Rx Instructions: administer with spacer cholecalciferol (vitamin D3) 25 mcg (1,000 unit) capsule 25 mcg PO DAILY Rx Instructions: Take one capsule by mouth every day peg 3350-electrolytes [Golytely] 236-22.74-6.74 -5.86 gram recon soln 240 ml PO Q10M Rx Instructions: until fecal effluent is clear Referrals Follow up/Referrals: Adam Serna MD [Primary Care Provider] - See instructions Activity Restrictions/Add. Instructions Additional Instructions/Restrictions: Prednisone as prescribed. Follow-up with Dr. Serna in the office, call for appointment. Additional instructions for NECK PAIN: See your physician as soon as possible for further evaluation. Return immediately if neck pain becomes intolerable, or if fever, numbness or weakness of your arms or legs, loss of control of your bowels or bladder. Clinical Impressions Clinical Impression: Cervical radiculopathy Discharge ED Provider: Adam Moya General Adult HPI General Chief complaint: PAIN Stated complaint: back/neck pain Time Seen by Provider: 12/27/21 13:40 Mode of Arrival: Ambulatory Source of Information: Patient Limitations: No Limitations Description of Symptoms (Recalled from ER Triage Doc. by RN): Pt c/o neck pain that extends into his upper back x3 days. No known injury. States it feels like something is pinched off in my neck History of Present Illness HPI narrative: States that he has something pinched in his neck or upper back. It started 3 days ago. No trauma or unusual activity. States that he has a tight pinching sensation worsened by looking to the right and tilting his head back. He gets a spasm in his right forearm extensor muscles when he does so. He says he had the same symptoms last year, used some [id number] ointment on it and it got better. He did not see his primary care doctor for that. He says that he had a colonoscopy scheduled for today but canceled it because his neck and back were bothering him. No prior history of neck or back problems such as herniated disks, surgery, fractures or trauma. He is not otherwise ill. No fever. No numbness of his arms. No loss of bowel or bladder control. Patient's is also being seen here in the emergency department for right arm and shoulder pain. Related Data Home Medications Medication Instructions Recorded Confirmed albuterol sulfate 90 mcg/actuation 2 puff inhalation Q6H PRN SOA 12/25/21 12/25/21 aerosol inhaler (Proventil HFA) cholecalciferol (vitamin D3) 25 25 mcg PO DAILY Supplement 12/25/21 12/25/21 mcg (1,000 unit) capsule ergocalciferol (vitamin D2) 1,250 1,250 mcg PO WEEKLY Supplement 12/25/21 12/25/21 mcg (50,000 unit) capsule peg 3350-electrolytes 236 240 ml PO Q10M BOWEL PREP 12/25/21 12/25/21 gram-22.74 gram-6.74 gram-5.86 gram solution (Golytely) Previous Rx's Medication Instructions Recorded levothyroxine 25 mcg tablet 25 mcg PO DAILY THYROID #90 tabs 11/22/21 lisinopril 10 1 tab PO DAILY Hypertension #90 11/22/21 mg-hydrochlorothiazide 12.5 mg tabs tablet prednisone 20 mg tablet 20 mg PO BID #10 tabs 12/27/21 Allergies Allergy/AdvReac Type Severity Reaction Status Date / Time tetanus and diphtheria Allergy Mild Verified 12/25/21 10:17 toxo
--- NOTE | 2021-12-27 14:18 | PC.NURSE ---
pt ambulated to restroom independently at this time
[2021-12-27 14:35] VITALS: BP 143/76; PULSE 74; RESP 20; TEMP 36.7; O2SAT 97
== END 2021-12-27 14:37 | disposition home or self-care (01) ==
PROVIDERS: Emergency Provider Emergency Medicine; PCP Emergency Medicine
DX: M54.12 Radiculopathy, cervical region (principal); M54.6 Pain in thoracic spine; I10 Essential (primary) hypertension; K21.9 Gastro-esophageal reflux disease without esophagitis; E03.9 Hypothyroidism, unspecified; J44.9 Chronic obstructive pulmonary disease, unspecified; E55.9 Vitamin D deficiency, unspecified; F17.210 Nicotine dependence, cigarettes, uncomplicated; M62.838 Other muscle spasm; Z79.51 Long term (current) use of inhaled steroids; Z79.899 Other long term (current) drug therapy; Z88.7 Allergy status to serum and vaccine; Z09 Encounter for follow-up examination after completed treatment for conditions other than malignant neoplasm; Z80.1 Family history of malignant neoplasm of trachea, bronchus and lung
CPT/HCPCS: 96372; 99283

== ENCOUNTER 2022-08-20 08:47 | Emergency (ER) | payer MEDICAID, SELFPAY ==
[2022-08-20 09:00] VITALS: BP 162/70; PULSE 76; RESP 18; TEMP 37.2; O2SAT 97; BMI 28.0
--- NOTE | 2022-08-20 09:02 | XR_ITS ---
FINAL REPORT CLINICAL HISTORY: Chest congestion COMPARISON: 08/23/2018 FINDINGS: Two views of the chest were obtained. The heart size and pulmonary vascularity are within normal limits. The mediastinum is normal. No acute pulmonary abnormality is identified. There is no pneumothorax. The bony thorax is intact. IMPRESSION: No active cardiopulmonary disease. Reviewed, Interpreted and Dictated by Lico Rodriguez III, MD Transcribed by Kristina Roman Authenticated and . [facility]
--- NOTE | 2022-08-20 09:14 | EXP.UTC ---
Discharge Plan Disposition Patient Disposition: Home, Self-Care Condition: Good Prescriptions Prescriptions: New prednisone 10 mg tablet 10 mg PO DIRECTED 9 Days Qty: 21 0RF Rx Instructions: Take 4 tablets daily for 3 days, then take 2 tablets daily for 3 days, then take 1 tablet daily for 3 days, then stop. benzonatate [benzonatate] 100 mg capsule 100 mg PO TIDP PRN (Reason: Cough) Qty: 30 0RF amoxicillin-pot clavulanate 875-125 mg Tablet 1 tab PO Q12H Qty: 20 0RF guaifenesin [Mucinex] 600 mg tablet extended release 12hr 600 - 1,200 mg PO BIDP PRN (Reason: Congestion) Qty: 30 0RF No Action albuterol sulfate [Proventil HFA] 90 mcg/actuation HFA aerosol inhaler 2 puff IH Q6H PRN (Reason: SOA) Qty: 8.5 2RF Rx Instructions: administer with spacer cholecalciferol (vitamin D3) 25 mcg (1,000 unit) capsule 25 mcg PO DAILY Qty: 90 2RF Rx Instructions: Take one capsule by mouth every day ergocalciferol (vitamin D2) 1,250 mcg (50,000 unit) capsule 1,250 mcg PO WEEKLY Qty: 12 0RF levothyroxine 25 mcg tablet 25 mcg PO DAILY Qty: 90 2RF Rx Instructions: TAKE 1 TABLET BY MOUTH ONCE DAILY FOR THYROID lisinopril-hydrochlorothiazide 10-12.5 mg tablet 1 tab PO DAILY Qty: 90 2RF Referrals Follow up/Referrals: Adam Serna MD [Primary Care Provider] - See instructions Activity Restrictions/Add. Instructions Additional Instructions/Restrictions: Drink plenty of fluids. Take tylenol or ibuprofen for pain or fever. Take the medications as directed. Follow up with your regular doctor. GO TO THE ER FOR ANY WORSENING SYMPTOMS Don't start the oral steroids until tomorrow, since you had the shot here today. Clinical Impressions Clinical Impression: COPD exacerbation Clinical Impression: (Ruled Out): Erythema multiforme Instructions Patient Instructions: DI for Chronic Obstructive Pulmonary Disease, Ceftriaxone Injection, Methylprednisolone Injection Discharge ED Provider: Danie Barnes [facility] General Stated complaint: Congestion cough Mode of Arrival: Ambulatory Source of Information: Patient Limitations: No Limitations Time Seen by Provider: 08/20/22 09:14 Description of Symptoms (Recalled from Triage Doc. by RN): cough, and congestion HEENT Symptoms (Recalled from RN notes): Yes Resp Symptoms (Recalled from RN notes): No Skin Symptoms (Recalled from RN notes): No MS Symptoms (Recalled from RN notes): No Functional Status (Recalled from RN notes): n/a History of Present Illness Provider Complaint: He states that for the past 5 days he has had worsening chest and sinus congestion. He has a history of copd. He states that he has shortness of breath when he is walking very far or being very active. Related Data Previous Rx's Medication Instructions Recorded albuterol sulfate 90 mcg/actuation 2 puff inhalation Q6H PRN SOA #8.5 05/23/22 aerosol inhaler (Proventil HFA) grams cholecalciferol (vitamin D3) 25 25 mcg PO DAILY Supplement #90 caps 05/23/22 mcg (1,000 unit) capsule ergocalciferol (vitamin D2) 1,250 1,250 mcg PO WEEKLY Supplement #12 05/23/22 mcg (50,000 unit) capsule caps levothyroxine 25 mcg tablet 25 mcg PO DAILY THYROID #90 tabs 05/23/22 lisinopril 10 1 tab PO DAILY Hypertension #90 05/23/22 mg-hydrochlorothiazide 12.5 mg tabs tablet amoxicillin 875 mg-potassium 1 tab PO Q12H #20 tabs 08/20/22 clavulanate 125 mg tablet benzonatate 100 mg capsule 100 mg PO TIDP PRN Cough #30 caps 08/20/22 guaifenesin 600 mg tablet, 600 - 1,200 mg PO BIDP PRN 08/20/22 extended release 12 hr (Mucinex) Congestion #30 tabs prednisone 10 mg tablet 10 mg PO DIRECTED 9 days #21 08/20/22 tabs Allergies Allergy/AdvReac Type Severity Reaction Status Date / Time tetanus and diphtheria Allergy Mild Verified 12/25/21 10:17 toxoids [TETANUS AND DIPHTHERIA TOXOIDS] Worker's Comp Is this a Worker's Comp case
[2022-08-20 09:57] VITALS: BP 162/70; PULSE 76; RESP 18; TEMP 37.2; O2SAT 97
== END 2022-08-20 09:57 | disposition home or self-care (01) ==
PROVIDERS: Emergency Provider Nurse Practitioner Family; PCP Emergency Medicine
DX: J44.1 Chronic obstructive pulmonary disease with (acute) exacerbation (principal); F17.210 Nicotine dependence, cigarettes, uncomplicated
CPT/HCPCS: 71046; 99212; 99214; G0463; J0696

== ENCOUNTER 2022-12-09 16:53 | Emergency (ER) | payer MEDICAID, SELFPAY ==
[2022-12-09 17:01] VITALS: BP 150/81; PULSE 76; RESP 19; TEMP 36.6; O2SAT 97; BMI 27.6
--- NOTE | 2022-12-09 17:24 | XR_ITS ---
PROCEDURE INFORMATION: Exam: XR Left Hip Exam date and time: 12/09/2022 5:25 PM Age: 52 years old Clinical indication: Hip pain; Left hip; Additional info: Left hip pain radiating to thigh TECHNIQUE: Imaging protocol: Radiologic exam of the left hip. Views: 2 or 3 views hip with pelvis when performed. COMPARISON: No relevant prior studies available. FINDINGS: Bones/joints: Unremarkable. No acute fracture. Soft tissues: Unremarkable. IMPRESSION: No acute findings.
[2022-12-09 17:30] VITALS: BP 131/68; PULSE 71; O2SAT 96
[2022-12-09 18:00] VITALS: BP 139/68; PULSE 72; O2SAT 95
--- NOTE | 2022-12-09 18:08 | PC.NURSE ---
checked on pt nothing needed at this time,call light at bs
--- NOTE | 2022-12-09 18:14 | HMH.EDGENADL ---
Discharge Plan Disposition Patient Disposition: Home, Self-Care Condition: Fair Chief Complaint: PAIN Prescriptions Prescriptions: No Action albuterol sulfate [Proventil HFA] 90 mcg/actuation HFA aerosol inhaler 2 puff IH Q6H PRN (Reason: SOA) Qty: 8.5 2RF Rx Instructions: administer with spacer cholecalciferol (vitamin D3) 25 mcg (1,000 unit) capsule 25 mcg PO DAILY Qty: 90 2RF Rx Instructions: Take one capsule by mouth every day ergocalciferol (vitamin D2) 1,250 mcg (50,000 unit) capsule 1,250 mcg PO WEEKLY Qty: 12 0RF levothyroxine 25 mcg tablet 25 mcg PO DAILY Qty: 90 2RF Rx Instructions: TAKE 1 TABLET BY MOUTH ONCE DAILY FOR THYROID lisinopril-hydrochlorothiazide 10-12.5 mg tablet 1 tab PO DAILY Qty: 90 2RF prednisone 10 mg tablet 10 mg PO DIRECTED 9 Days Qty: 21 0RF Rx Instructions: Take 4 tablets daily for 3 days, then take 2 tablets daily for 3 days, then take 1 tablet daily for 3 days, then stop. benzonatate [benzonatate] 100 mg capsule 100 mg PO TIDP PRN (Reason: Cough) Qty: 30 0RF amoxicillin-pot clavulanate 875-125 mg Tablet 1 tab PO Q12H Qty: 20 0RF guaifenesin [Mucinex] 600 mg tablet extended release 12hr 600 - 1,200 mg PO BIDP PRN (Reason: Congestion) Qty: 30 0RF Referrals Follow up/Referrals: Adam Serna MD [Primary Care Provider] - See instructions Activity Restrictions/Add. Instructions Additional Instructions/Restrictions: At this time is felt you are safe to be discharged home. If new or worsening symptoms please do not hesitate to return the emergency department. Please follow-up with Dr. Serna within the next 7 days for continued evaluation. Clinical Impressions Clinical Impression: Acute lumbar back pain, Acute hip pain Discharge ED Provider: Darrius Turner General Adult HPI General Chief complaint: PAIN Stated complaint: Left hip and leg pain Time Seen by Provider: 12/09/22 18:00 Mode of Arrival: Ambulatory Source of Information: Patient Limitations: No Limitations Description of Symptoms (Recalled from ER Triage Doc. by RN): 52 yo F presents to ED with c/o left hip pain radiating down into hip. pt reports no known injury. pt reports pain ongoing for almost 1 week. but the past two days the pain has been worse. History of Present Illness HPI narrative: Patient is a 52-year-old male who presents emergency department for evaluation of hip pain. Onset was acute, over the last 1 week. Patient has had pain that shoots from his lumbar spine around his left buttock into his left lateral thigh. Worse with range of motion while bearing weight. Denies saddle anesthesia, weakness, urinary incontinence, other acute complaints at this time. 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 No other acute complaints at this time. Related Data Previous Rx's Medication Instructions Recorded albuterol sulfate 90 mcg/actuation 2 puff inhalation Q6H PRN SOA #8.5 05/23/22 aerosol inhaler (Proventil HFA) grams cholecalciferol (vitamin D3) 25 25 mcg PO DAILY Supplement #90 caps 05/23/22 mcg (1,000 unit) capsule amoxicillin 875 mg-potassium 1 tab PO Q12H #20 tabs 08/20/22 clavulanate 125 mg tablet benzonatate 100 mg capsule 100 mg PO TIDP PRN Cough #30 caps 08/20/22 guaifenesin 600 mg tablet, 600 - 1,200 mg PO BIDP PRN 08/20/22 extended release 12 hr (Mucinex) Congestion #30 tabs prednisone 10 mg tablet 10 mg PO DIRECTED 9 days #21 08/20/22 tabs ergocalciferol (vitamin D2) 1,250 1,250 mcg PO WEEKLY Supplement #12 08/25/22 mcg (50,000 unit) capsule caps levothyroxine 25 mcg tablet 25 mcg PO DAILY THYROID #90 tabs 11/25/22 lisinopril 10 1 tab PO DAILY Hypertension #90 11/25/22 mg-hydrochlorothiazide 12.5 mg tabs tablet Allergies Allergy/AdvReac Type Severity Reaction Status Date / Time tetanus and diphtheria Allergy Mild Verified 12/25/21 10:1
[2022-12-09 18:30] VITALS: BP 146/75; PULSE 75; O2SAT 96
[2022-12-09 18:54] VITALS: BP 146/75; PULSE 70; RESP 20; TEMP 36.8; O2SAT 97
== END 2022-12-09 18:55 | disposition home or self-care (01) ==
PROVIDERS: Emergency Provider Emergency Medicine; PCP Emergency Medicine
DX: M54.50 Low back pain, unspecified (principal); M25.552 Pain in left hip; J44.9 Chronic obstructive pulmonary disease, unspecified; K21.9 Gastro-esophageal reflux disease without esophagitis; I10 Essential (primary) hypertension; E03.9 Hypothyroidism, unspecified; F17.210 Nicotine dependence, cigarettes, uncomplicated
CPT/HCPCS: 73502; 96372; 99283

== ENCOUNTER → 2022-12-18 15:50 | Outpatient (CLI) | payer MEDICAID, SELFPAY ==
[2022-12-18 13:46] LABS: Monocytes # 0.5 K/mm3 (0.1-1.0); Monocytes % 7.8 % (1.7-9.3)
[2022-12-18 13:59] LABS: Basophils # 0.1 K/mm3 (0-0.2); Basophils % 0.8 % (0.1-2.0); Eosinophils # 0.1 K/mm3 (0.0-0.4); Hematocrit 56.1 % (42.0-52.0); Hemoglobin 18.2 g/dL (14.1-18.0); Lymphocytes # 1.6 K/mm3 (0.7-4.5); Lymphocytes % 26.2 % (10-50); Mean Corpuscular HGB Conc 32.5 g/dL (31.8-35.4); Mean Corpuscular Hemoglobin 32.7 pg (27.0-31.2); Mean Corpuscular Volume 100.7 fl (80-94); Mean Platelet Volume 9.2 fl (7.4-10.4); Neutrophils # 3.9 K/mm3 (1.8-7.8); Neutrophils % 63.3 % (37.0-80.0); Platelet Count 226 K/mm3 (142-424); Red Blood Count 5.57 M/mm3 (4.60-6.20); Red Cell Distribution Width 12.8 % (11.5-17.5); White Blood Count 6.2 K/mm3 (4.8-10.8)
[2022-12-18 14:56] LABS: Chloride 104 mmol/L (98-107); Potassium 4.6 mmoL/L (3.5-5.1); Sodium 134 mmol/L (136-145)
[2022-12-18 14:58] LABS: Blood Urea Nitrogen 13 mg/dl (9-20); Estimated Glomerular Filt Rate 118 ml/min (>60); GFR (African American) 142 ML/MIN (>60)
[2022-12-18 14:59] LABS: Alanine Aminotransferase 41 U/L (12-78); Albumin Level 4.1 g/dl (3.5-5.0); Albumin/Globulin Ratio 1.1 (1.1-1.8); Alkaline Phosphatase 95 U/L (38-126); Anion Gap 12.6 mEq/L (5-15); Aspartate Amino Transferase 42 U/L (17-59); Bilirubin,Total 1.2 mg/dl (0.2-1.3); Calcium 9.7 mg/dl (8.4-10.2); Carbon Dioxide 22 mmol/L (22.0-30.0); Chol/HDL Ratio 4.5 (1-3.5); Cholesterol 231 mg/dl (140-200); Globulin 3.6 g/dL (1.3-3.2); Glucose 106 mg/dl (74-100); HDL Cholesterol 51 mg/dl (40-60); Total Protein,Serum 7.7 g/dl (6.3-8.2); Triglycerides 198 mg/dl (30-150); VLDL Cholesterol 40 mg/dL (0-40)
[2022-12-18 16:11] LABS: Direct LDL Cholesterol 134.44 mg/dL (100-129)
[2022-12-18 16:17] LABS: 25-OH Vitamin D, Total 54.8 ng/mL (30-100)
[2022-12-18 16:32] LABS: Prostate Specific Ag Screen 1.2 ng/ml (0.0-4.0)
[2022-12-18 20:12] LABS: Thyroid Stimulating Hormone 9.73 uIU/mL (0.465-4.68)
== END ==
PROVIDERS: PCP Nurse Practitioner Family; Visit Provider Nurse Practitioner Family
DX: E03.9 Hypothyroidism, unspecified (principal); I10 Essential (primary) hypertension; Z12.5 Encounter for screening for malignant neoplasm of prostate
CPT/HCPCS: 80053; 80061; 82306; 84443; 85025; G0103

== ENCOUNTER 2023-01-27 04:11 | Emergency (ER) | payer MEDICAID, SELFPAY ==
[2023-01-27 04:13] VITALS: BP 167/76; PULSE 81; RESP 18; TEMP 36.7; O2SAT 97; BMI 26.6
--- NOTE | 2023-01-27 04:37 | HMH.EDGENADL ---
Discharge Plan Disposition Patient Disposition: Home, Self-Care Condition: Good Chief Complaint: PAIN Prescriptions Prescriptions: New lidocaine 5 % adhesive patch,medicated 1 patch topical DAILY PRN (Reason: pain) Qty: 30 0RF Rx Instructions: leave on most painful area for up to 12 hrs methocarbamol 500 mg tablet 1,000 mg PO Q6H PRN (Reason: pain) Qty: 50 0RF No Action prednisone 20 mg tablet 20 mg PO BID 5 Days Qty: 10 0RF naproxen 500 mg tablet 500 mg PO BID Qty: 30 0RF albuterol sulfate [Proventil HFA] 90 mcg/actuation HFA aerosol inhaler 2 puff IH Q6H PRN (Reason: SOA) Qty: 8.5 2RF Rx Instructions: administer with spacer cholecalciferol (vitamin D3) 25 mcg (1,000 unit) capsule 25 mcg PO DAILY Qty: 90 2RF Rx Instructions: Take one capsule by mouth every day ergocalciferol (vitamin D2) 1,250 mcg (50,000 unit) capsule 1,250 mcg PO WEEKLY Qty: 12 0RF lisinopril-hydrochlorothiazide 10-12.5 mg tablet 1 tab PO DAILY Qty: 90 2RF levothyroxine 50 mcg capsule 50 mcg PO DAILY Qty: 30 0RF Referrals Follow up/Referrals: Adam Serna MD [Primary Care Provider] - See instructions Activity Restrictions/Add. Instructions Additional Instructions/Restrictions: Please follow-up with your PCP for physical therapy and consideration of MRI imaging. Please use lidocaine patches as prescribed. Please take Robaxin as needed for pain. Please take Tylenol 1 g every 6 hours as needed for pain. It is okay to take ibuprofen 600 mg every 6 hours as needed, but I would not recommend taking on a daily basis as this can cause stomach and kidney issues. Clinical Impressions Clinical Impression: Muscle spasm Sciatica Qualifiers: Laterality: left Qualified Code(s): M54.32 - Sciatica, left side Discharge ED Provider: Tre Da Silva Adult [facility] General Chief complaint: PAIN Stated complaint: left leg spasm, poss sciatic nerve pain Time Seen by Provider: 01/27/23 04:15 Mode of Arrival: Ambulatory Source of Information: Patient Limitations: Physical Limitations Description of Symptoms (Recalled from ER Triage Doc. by RN): Pt states he has hx of sciatica, pain on left side for 1 week. Has tried ice, tylenol and hemp cream at home. History of Present Illness HPI narrative: 52-year-old male presents with worsening left-sided radicular pain. He reports that he has sciatica and it has been persistent for the last couple of months. He had shooting pains down the buttock posterior leg that prevented him from sleeping tonight, that is why he presented. He has been seen in the ED for this as well as seen by his PCP, he was supposed to get physical therapy and chiropractor referral but it did not happen. He reports that he takes some Tylenol as needed does not take medications frequently. He reports no history of cancer, reports no history of IV drug use, no recent trauma. He reports that he is having difficulty walking secondary to pain. He denies any changes in bowel or bladder function, denies any perineal anesthesia. Related Data Previous Rx's Medication Instructions Recorded albuterol sulfate 90 mcg/actuation 2 puff inhalation Q6H PRN SOA #8.5 05/23/22 aerosol inhaler (Proventil HFA) grams cholecalciferol (vitamin D3) 25 25 mcg PO DAILY Supplement #90 caps 05/23/22 mcg (1,000 unit) capsule ergocalciferol (vitamin D2) 1,250 1,250 mcg PO WEEKLY Supplement #12 08/25/22 mcg (50,000 unit) capsule caps lisinopril 10 1 tab PO DAILY Hypertension #90 11/25/22 mg-hydrochlorothiazide 12.5 mg tabs tablet naproxen 500 mg tablet 500 mg PO BID #30 tabs 12/18/22 prednisone 20 mg tablet 20 mg PO BID 5 days #10 tabs 12/18/22 levothyroxine 50 mcg capsule 50 mcg PO DAILY thyroid disease 12/22/22 #30 caps lidocaine 5 % topical patch 1 patch topical DAILY PRN pain #30 01/27/23 ea methocarbamol 500 mg tablet 1,000 mg PO Q6H PRN pain #50 tabs 01/27/23 Allergies All
[2023-01-27 04:48] VITALS: BP 167/76; PULSE 82; RESP 16; TEMP 36.7; O2SAT 98
== END 2023-01-27 04:58 | disposition home or self-care (01) ==
PROVIDERS: Emergency Provider Emergency Medicine; PCP Emergency Medicine
DX: M54.42 Lumbago with sciatica, left side (principal); J44.9 Chronic obstructive pulmonary disease, unspecified; K21.9 Gastro-esophageal reflux disease without esophagitis; I10 Essential (primary) hypertension; E03.9 Hypothyroidism, unspecified; F17.210 Nicotine dependence, cigarettes, uncomplicated
CPT/HCPCS: 96372; 99283

== ENCOUNTER 2023-03-04 17:30 | Outpatient (RCR) | payer MEDICAID, SELFPAY | END 2023-03-04 18:30 | disposition home or self-care (01) | LOC: PT 17:30 | PROVIDERS: PCP Emergency Medicine; Visit Provider Nurse Practitioner Family | DX: M54.50 Low back pain, unspecified (principal); M79.605 Pain in left leg; M54.32 Sciatica, left side | CPT/HCPCS: 20560; 20561; 97010; 97012; 97014; 97110; 97163; 97530; G0283 ==

== ENCOUNTER 2023-06-02 15:39 | Outpatient (CLI) | payer MEDICAID, SELFPAY ==
--- NOTE | 2023-06-02 15:40 | MR_ITS ---
FINAL REPORT CLINICAL HISTORY: bilateral hip pain FINDINGS: Multiplanar MR imaging of the right hip was performed without contrast. There is no evidence of fracture or dislocation. Abnormal signal involves nearly the entire femoral head consistent with avascular necrosis. No significant flattening of the femoral head is identified. Small osteochondral lesions are seen of the superior acetabulum. There is bone marrow edema in the superior acetabulum and to a lesser extent the femoral head. The superior labrum has an abnormal appearance consistent with a tear. A small joint effusion is seen. The tendons are intact. Edema is noted in the adductor musculature. A fluid collection is seen anterior to the right hip which may represent a ganglion cyst. There is edema adjacent to the right iliac us muscle within the pelvis. 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 Bone marrow edema in the superior acetabulum and to a lesser extent the femoral head. Areas of muscular edema at the right hip. Fluid collection anterior to the right hip may represent a ganglion cyst. Authenticated and [facility]
--- NOTE | 2023-06-02 15:40 | MR_ITS ---
FINAL REPORT CLINICAL HISTORY: bilateral hip pain FINDINGS: Multiplanar MR imaging of the left hip was performed without contrast. There is no evidence of fracture or dislocation. A large area of abnormal signal involves essentially the entire femoral head consistent with avascular necrosis. Mild bone marrow edema is seen in the superior acetabulum and the femoral head. No bony mass is identified. A probable tear is seen of the anterior-superior labrum. A moderate joint effusion is seen. The tendons are intact. The musculature is intact. No soft tissue mass or cyst is identified. IMPRESSION: Large area of avascular necrosis involving the left femoral head. Moderate joint effusion. Authenticated and [facility]
== END 2023-06-02 23:59 ==
LOC: RAD 15:40
PROVIDERS: PCP Emergency Medicine; Visit Provider Physician Assistant
DX: M25.551 Pain in right hip (principal); M25.552 Pain in left hip
CPT/HCPCS: 73721

== ENCOUNTER 2023-10-07 14:00 | Outpatient (RCR) | payer MEDICAID, SELFPAY | END 2023-12-09 15:20 | disposition home or self-care (01) | LOC: PT 14:00 | PROVIDERS: Visit Provider Specialist/Technologist Athletic Trainer | DX: M25.551 Pain in right hip (principal); Z96.641 Presence of right artificial hip joint | CPT/HCPCS: 97010; 97014; 97110; 97163; 97164; 97530; G0283 ==

== ENCOUNTER 2023-10-28 09:24 | Outpatient (CLI) | payer MEDICAID, SELFPAY ==
[2023-10-28 21:22] LABS: Microalbumin < 6.000 mg/L (0-16.7)
[2023-10-28 21:25] LABS: Creatinine,Urine Random 119 mg/dL (Not Estab.)
== END 2023-10-28 23:59 | disposition home or self-care (01) ==
LOC: LAB.DROPOF 10-29 09:24
PROVIDERS: PCP Internal Medicine; Visit Provider Internal Medicine
DX: R60.0 Localized edema (principal)
CPT/HCPCS: 82043; 82570

== ENCOUNTER 2023-10-30 09:20 | Outpatient (CLI) | payer MEDICAID, SELFPAY ==
--- NOTE | 2023-10-30 09:24 | XR_ITS ---
FINAL REPORT CLINICAL HISTORY: lower back pain..no trauma FINDINGS: LUMBAR SPINE Three views demonstrate no acute fracture. There are mild degenerative changes with osteophytes. Mild vascular calcification is identified. There are postoperative changes in the right hip. There is no malalignment. IMPRESSION: Mild degenerative changes. Reviewed, Interpreted and Dictated by Lico Rodriguez III, MD Transcribed by Guillermina Newman Authenticated and . [facility]
[2023-10-30 18:14] LABS: Basophils # 0.1 K/mm3 (0-0.2); Basophils % 1.4 % (0.1-2.0); Eosinophils # 0.1 K/mm3 (0.0-0.4); Eosinophils % 2.5 % (0.1-12.0); Hematocrit 48.5 % (42.0-52.0); Lymphocytes # 1.2 K/mm3 (0.7-4.5); Lymphocytes % 27.3 % (10-50); Mean Corpuscular HGB Conc 32.9 g/dL (31.8-35.4); Mean Corpuscular Volume 100.3 fl (80-94); Mean Platelet Volume 9.4 fl (7.4-10.4); Monocytes # 0.3 K/mm3 (0.1-1.0); Monocytes % 6.7 % (1.7-9.3); Neutrophils # 2.8 K/mm3 (1.8-7.8); Neutrophils % 62.1 % (37.0-80.0); Platelet Count 250 K/mm3 (142-424); Red Blood Count 4.83 M/mm3 (4.60-6.20); Red Cell Distribution Width 13.9 % (11.5-17.5); White Blood Count 4.6 K/mm3 (4.8-10.8)
[2023-10-30 18:42] LABS: Chloride 102 mmol/L (98-107); Sodium 134 mmol/L (136-145)
[2023-10-30 18:43] LABS: Potassium 4.3 mmoL/L (3.5-5.1)
[2023-10-30 18:45] LABS: Alanine Aminotransferase 34 U/L (12-78); Albumin Level 4.3 g/dl (3.5-5.0); Albumin/Globulin Ratio 1.2 (1.1-1.8); Alkaline Phosphatase 94 U/L (38-126); Anion Gap 11.3 mEq/L (5-15); Aspartate Amino Transferase 34 U/L (17-59); Bilirubin,Total 0.6 mg/dl (0.2-1.3); Blood Urea Nitrogen 13 mg/dl (9-20); Carbon Dioxide 25 mmol/L (22.0-30.0); Estimated Glomerular Filt Rate 100 ml/min (>60); GFR (African American) 121 ML/MIN (>60); Globulin 3.6 g/dL (1.3-3.2); Total Protein,Serum 7.9 g/dl (6.3-8.2); Triglycerides 179 mg/dl (30-150); VLDL Cholesterol 36 mg/dL (0-40)
[2023-10-30 18:46] LABS: Calcium 9.5 mg/dl (8.4-10.2); Chol/HDL Ratio 4.9 (1-3.5); Cholesterol 263 mg/dl (140-200); Glucose 87 mg/dl (74-100); HDL Cholesterol 54 mg/dl (40-60)
[2023-10-30 18:57] LABS: Direct LDL Cholesterol 161.89 mg/dL (100-129)
[2023-10-30 19:03] LABS: 25-OH Vitamin D, Total 40.6 ng/mL (30-100)
== END 2023-10-30 23:59 | disposition home or self-care (01) ==
LOC: LAB.DROPOF 09:21
PROVIDERS: PCP Internal Medicine; Visit Provider Internal Medicine
DX: R60.0 Localized edema (principal); E55.9 Vitamin D deficiency, unspecified; E03.9 Hypothyroidism, unspecified
CPT/HCPCS: 72100; 80050; 80053; 80061; 82306; 84443; 85025

== ENCOUNTER 2023-11-12 19:06 | Outpatient (CLI) | payer MEDICAID, SELFPAY ==
[2023-11-12 20:46] LABS: Free T4 (Free Thyroxine) 0.78 ng/dl (0.78-2.19)
[2023-11-14 10:23] LABS: Thyroid Peroxidase Antibodies >600 IU/mL (0-34); Triiodothyronine (T3) Free 2.4 pg/mL (2.0-4.4)
== END 2023-11-12 23:59 | disposition home or self-care (01) ==
LOC: LAB.DROPOF 19:07
PROVIDERS: PCP Internal Medicine; Visit Provider Internal Medicine
DX: R19.5 Other fecal abnormalities (principal)
CPT/HCPCS: 84439; 84443; 84481; 86376

== ENCOUNTER 2023-11-26 01:10 | Emergency (ER) | payer MEDICAID, SELFPAY ==
[2023-11-26 01:13] VITALS: BP 181/78; PULSE 80; RESP 18; TEMP 36.7; O2SAT 96; BMI 31.0
--- NOTE | 2023-11-26 01:24 | HMH.EDGENADL ---
Discharge Plan Disposition Patient Disposition: Home, Self-Care Prescriptions Prescriptions: No Action hydrochlorothiazide 12.5 mg tablet 12.5 mg PO DAILY Qty: 30 0RF albuterol sulfate [Proventil HFA] 90 mcg/actuation HFA aerosol inhaler 2 puff IH Q6H PRN (Reason: SOA) Qty: 8.5 8RF Rx Instructions: administer with spacer cholecalciferol (vitamin D3) 25 mcg (1,000 unit) capsule 25 mcg PO DAILY Qty: 90 2RF Rx Instructions: Take one capsule by mouth every day ergocalciferol (vitamin D2) [Vitamin D2] 1,250 mcg (50,000 unit) capsule See Rx Instructions .ROUTE .COMPLEX Qty: 12 4RF Dose Instruction: TAKE 1 CAPSULE BY MOUTH ONCE WEEKLY FOR SUPPLEMENT Rx Instructions: TAKE 1 CAPSULE BY MOUTH ONCE WEEKLY FOR SUPPLEMENT lidocaine 5 % adhesive patch,medicated 1 patch topical DAILY PRN (Reason: pain) Qty: 30 4RF Rx Instructions: leave on most painful area for up to 12 hrs lisinopril-hydrochlorothiazide 10-12.5 mg tablet 1 tab PO DAILY Qty: 90 4RF levothyroxine 75 mcg capsule 75 mcg PO DAILY Qty: 30 2RF meloxicam 15 mg tablet 15 mg PO DAILY Qty: 30 2RF Referrals Follow up/Referrals: Afshin Roblero DO [Primary Care Provider] - See instructions Activity Restrictions/Add. Instructions Additional Instructions/Restrictions: Please continue to use Flonase and Claritin as previously prescribed. Discharge instructions Clinical Impressions Clinical Impression: Nasal congestion Print Language Print Language: [place] Discharge ED Provider: Tre Da Silva General Adult HPI General Chief complaint: Shortness of Breath/Dyspnea Stated complaint: sore throat, cough, congestion Time Seen by Provider: 11/26/23 01:24 History of Present Illness HPI narrative: 53-year-old male presents with symptoms that he cannot get a full breath through his nose. He reports that been ongoing since the weather changed to few weeks to a month ago. He reports that he quit smoking 4 months ago. He reports has a chronic cough but nothing different. Does like his nose has been continually congested for a long time. He denies any fever. Reports that when he breathes through his mouth he feels like he cannot get a deep breath. Denies any chest pain. Related Data Previous Rx's ?Medication ?Instructions ?Recorded albuterol sulfate 90 mcg/actuation 2 puff inhalation Q6H PRN SOA #8.5 10/28/23 aerosol inhaler (Proventil HFA) grams cholecalciferol (vitamin D3) 25 25 mcg PO DAILY Supplement #90 caps 10/28/23 mcg (1,000 unit) capsule ergocalciferol (vitamin D2) 1,250 See Rx Instructions .Route 10/28/23 mcg (50,000 unit) capsule (Vitamin .COMPLEX #12 caps D2) hydrochlorothiazide 12.5 mg tablet 12.5 mg PO DAILY #30 tabs 10/28/23 lidocaine 5 % topical patch 1 patch topical DAILY PRN pain #30 10/28/23 ea lisinopril 10 1 tab PO DAILY Hypertension #90 10/28/23 mg-hydrochlorothiazide 12.5 mg tabs tablet levothyroxine 75 mcg capsule 75 mcg PO DAILY #30 caps 11/19/23 meloxicam 15 mg tablet 15 mg PO DAILY #30 tabs 11/19/23 Allergies Allergy/AdvReac Type Severity Reaction Status Date / Time tetanus and diphtheria Allergy Mild Verified 11/18/23 13:04 toxoids [TETANUS AND DIPHTHERIA TOXOIDS] [facility] Disclaimer: The information contained in this section may have been updated after the patient was seen, as this information can be updated by other users. Medical History COPD (chronic obstructive pulmonary disease) Allergies Vitamin D deficiency Hypothyroidism Hypertension GERD (gastroesophageal reflux disease) Family History Other Family history of cancer Lung cancer Social History Smoking Status: Former smoker tobacco type: cigarettes packs per day: 2 alcohol intake: never substance use type: denies use current occupational status: employed Travel in the last 8 weeks: None housing: house ROS Obtained: Yes All systems reviewed & no additional complaints except as documented Physical Exam General General appearance: alert and in no apparent distress Head Head exam: atraumatic and normocephalic Eye Eye exam: Present normal appearance, PERRL and EOMI ENT ENT exam: Present normal oropharynx and normal external ear exam Neck Neck exam: Present normal inspection and full ROM Chest Chest inspection: Present normal inspection and symmetric chest wall rise; Absent tenderness Respiratory Respiratory exam: Present normal lung sounds bilaterally; Absent respiratory distress Cardiovascular Cardiovascular exam: Present regular rate and normal rhythm Abdominal Exam Abdominal exam: Present soft; Absent distention, tenderness or guarding Extremities Exam Extremities exam: Present normal inspection; Absent edema or joint swelling Back Exam Back exam: Present normal inspection; Absent tenderness Neurological Exam Neurological exam: Present alert and oriented X3; Absent motor sensory deficit Psychiatric Psychiatric exam: Present normal affect and normal mood Skin Skin exam: Present warm, dry and normal color Lymphatic Lymphatic Findings: no adenopathy Medical Decision Making Medical Records Medical records reviewed: Yes I reviewed the patient's medical records. Ashish Inquiry Pt receiving controlled substance: No Ashish was queried for this patient: No Vital Signs: 11/26/23 01:13 11/26/23 01:32 Temperature 98.0 F 98.0 F Temperature Source Oral Oral Pulse Rate 79 Pulse Rate [Left Radial] 80 Respiratory Rate 18 20 Blood Pressure 157/81 H Blood Pressure [Right Arm] 181/78 H Blood Pressure Mean [Right Arm] 112 Blood Pressure Source Automatic Cuff Blood Pressure Source [Right Arm] Automatic Cuff Blood Pressure Position Sitting Blood Pressure Position [Right Arm] Sitting 02 Sat by Pulse Oximetry 96 Oxygen Delivery Method Room Air Room Air Lab Data Lab results reviewed: Yes I reviewed the patient's lab results. Medical Decision Narrative: 53-year-old male presents with chronic nasal congestion. Patient was recently prescribed Flonase and Claritin which he only started yesterday. Lungs clear, vital signs normal, no chest pain. Blood work and EKG and x-ray were considered but deemed unnecessary given history and exam. No evidence of emergent pathology at this time. Patient was discharged with instructions to continue his antihistamine and Flonase at home and return for new or worsening symptoms. Procedures Risk/Benefits of Procedure(s) Were Explained: Yes Critical Care Critical Care Time Critical Care Time: No
[2023-11-26 01:32] VITALS: BP 157/81; PULSE 79; RESP 20; TEMP 36.7; O2SAT 95
== END 2023-11-26 01:38 | disposition home or self-care (01) ==
PROVIDERS: Emergency Provider Emergency Medicine; PCP Internal Medicine
DX: R09.81 Nasal congestion (principal); J44.9 Chronic obstructive pulmonary disease, unspecified; Z87.891 Personal history of nicotine dependence
CPT/HCPCS: 99282

== ENCOUNTER 2023-11-26 06:46 | Outpatient (CLI) | payer MEDICAID, SELFPAY ==
--- NOTE | 2023-11-26 06:54 | CT_ITS ---
FINAL REPORT TECHNIQUE: Axial CT images of the chest were obtained without contrast. Low-dose protocol was utilized. This study was performed with techniques to keep radiation doses as low as reasonably achievable (ALARA). Individualized dose reduction techniques using automated exposure control or adjustment of mA and/or kV according to the patient's size were employed. CLINICAL HISTORY: lung cancer screening current smoker 3ppd x40 years COMPARISON: 09/13/2021 FINDINGS: CT CHEST WITHOUT, LOW DOSE SCREENING CT Di Vol: 2.90 mGy DLP: 103.68 mGy*cm There is no axillary, mediastinal, or hilar adenopathy. The heart size is normal. There is no pleural or pericardial effusion. The lung windows show a new 3 mm density in the periphery of the left upper lobe best seen on image 155 of series 2. Limited images of the upper abdomen demonstrate no acute findings. IMPRESSION: New 3 mm left upper lobe nodule. LR Category 2: 12 month follow-up low-dose chest CT is recommended. Reviewed, Interpreted and Dictated by Joao Muhammad MD Transcribed by Pinky Jiménez Authenticated and [facility]
== END 2023-11-26 23:59 | disposition home or self-care (01) ==
LOC: RAD 06:47
PROVIDERS: PCP Internal Medicine; Visit Provider Internal Medicine
DX: Z87.891 Personal history of nicotine dependence (principal)
CPT/HCPCS: 71271

== ENCOUNTER 2023-12-04 12:45 | Outpatient (CLI) | payer MEDICAID, SELFPAY ==
--- NOTE | 2023-12-04 12:45 | US_ITS ---
FINAL REPORT CLINICAL HISTORY: thyroid nodules COMPARISON: None FINDINGS: Sonographic images of the thyroid gland were obtained. The right thyroid lobe measures 55 mm in length. The left thyroid lobe measures 54 mm in length. The thyroid isthmus measures 7 mm. The thyroid gland is enlarged. There is a heterogeneous echotexture with increased vascularity. Findings are consistent with thyroiditis or goiter. No mass or nodule is identified. IMPRESSION: Findings consistent with thyroiditis or goiter with no suspicious mass or nodule identified. Reviewed, Interpreted and Dictated by Lico Rodriguez III, MD Transcribed by Pinky Jiménez Authenticated and [facility]
== END 2023-12-04 23:59 | disposition home or self-care (01) ==
LOC: RAD 12:45
PROVIDERS: PCP Internal Medicine; Visit Provider Internal Medicine
DX: E03.9 Hypothyroidism, unspecified (principal)
CPT/HCPCS: 76536

== ENCOUNTER 2023-12-09 15:00 | Outpatient (RCR) | payer MEDICAID, SELFPAY ==
--- NOTE | 2023-11-30 11:56 | HMH.PTOPEV ---
PT Outpatient Evaluation Rehab PT Outpatient Evaluation Start: 11/30/23 10:00 Freq: Status: Active Protocol: Document 11/30/23 10:00 BILL (Rec: 11/30/23 11:55 BILL [id number]) E-signed By Sybil Rodriguez, PT Outpatient Therapy Subjective History Subjective History Pt is a 53 y/o male who reports chronic central LBP that worsened in July after having his R hip replaced. Pt also reports intermittent sharp shooting pain down the lateral LLE from his posterior hip to his ankle. Pt denies numbness/tingling of the LLE or b/b dysfunction. Pt reports he had an xray of his lumbar spine on 10/30/23 with findings of There are mild degenerative changes with osteophytes. Mild vascularcalcification is identified. There are postoperative changes in the right hip. There is no malalignment. Pt reports he was prescribed Mobic which helps minimally with pain. Pt reports overall pain is aggravated by prolonged standing, walking, lifting, walking while carrying heavy objects and stiffness with bending forward. Pt reports pain is worse in the mornings and at night. Pt reports he has difficulty sleeping due to pain. Pt also reports BLE swelling and is scheduled to see a cloth bale header tomorrow regarding this. 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 Chief Complaint Pain,Stiff Symptom Type Ache,Sharp,Dull Symptoms Relieved By Rest/Positioning,Prescription Meds Symptoms Aggravated By Supine,Standing,Bending/ Stooping,Physical Activity, Twisting,Walking,Lifting Current Functional Limitations Lifting,Housework,Sleeping, Standing,Squatting,Walking, Bending/Stooping Symptom Description Constant but Variable Level of pain today (0-10) 4 Pain scale - at its best (0-10) 4 Pain scale - at its worst (0-10) 10 Lumbopelvic Eval Posture Lumbar Spine Posture Standing Position Flexed Gait Observation General Gait Pattern Observation Antalgic Gait,Decrease Weight Bear (L) Palapation tenderness bilateral lumbar spinal tenderness Yes: L2-L5 paraspinal tenderness Yes: thoracolumbar Lumbar/Sacral Palpation Findings Tenderness Lumbar/Sacral Palpation Overall Comment 2/4 TTP Accessory Movement L-spine Vertebrae Accessory Movements [facility] [place] that Elicit Symptoms L2 bilateral L3 bilateral L4 bilateral L5 bilateral S1 bilateral Range of Motion Lumbar Spine Active Flexion Range of 45 Motion (degrees) Lumbar Spine Active Extension Range of 5 Motion (degrees) Left Lumbar Spine Lateral Flexion Active 7 Range of Motion (degrees) Right Lumbar Spine Lateral Flexion 7 Active Range of Motion (degrees) Manual Muscle Test Bilateral Knee Extension Strength Grade 5 Normal Knee Flexion Strength Grade 5 Normal Hip Flexion Strength Grade 4 Good Hip Abduction Strength Grade 4 Good Hip Adduction Strength Grade 4 Good Hip External Rotation Strength Grade 4 Good Hip Extension Strength Grade 4- Good- Ankle Dorsiflexion Strength Grade 5 Normal DTR Rt Patellar 2+ Lt Patellar 2+ Rt Gastroc/Soleus 2+ Lt Gastroc/Soleus 2+ Altered Sensation Bilateral Comment equal and intact to light touch sensation bilaterally Special Tests Hip Scouring (Quadrant) Test Positive Left Hip Francisco (RA) Test Positive Left Hip Piriformis Test Negative Left Sciatic Nerve Tension Test Negative Left Unilateral Straight Leg Raise (Lasegue) Negative Left Test Hip/Knee Eval ROM left Hip Flexion w/Knee Flexed Active Range 80 of Motion (degrees) Hip External Rotation Active Range of 35 Motion (degrees) Hip Internal Rotation Active Range of 30 Motion (degrees) Oswestry Index Section 1 Pain Intensity The pain comes and goes and is severe Section 2 Personal Care (Washing,Dresing) change my way of washing or dressing in order to avoid pain Section 3 Lifting I can only lift very light weights at most Section 4 Walking I have some pain when walking but it does not increase with distance Section 5 Sitting I can sit in any chair for as long as I like Section 6 Standing I cannot stand more than 1/2 hour without increasing pain Section 7 Sleeping Because of my pain, my normal night's sleep is less than 6 hours sleep Section 8 Social Life My social life is normal and gives me no extra pain Section 9 Traveling I get some pain when traveling , but none of my usual forms of travel m Section 10 Changing Degreee of Pain My pain is gradually getting worse Score and Risk Level Oswestry Sc 20 Oswestry Risk Level Moderate Disability Outpatient Therapy Assessment Impairments Problems/Impairmments Palpation Tenderness,Impaired Range of Motion,Impaired Strength,Impaired Walking, Impaired Standing,Impaired Sitting,Impaired Lifting, Impaired Household Care, Impaired Squatting,Impaired Work Activities,Subjective C/O Pain,Impaired Self Care/Self Management Prognosis Rehab Potential Good Clinical Impression Consistent with Diagnosis Yes Short Term Goals Number of Weeks 3 Increase Range of Motion Yes: Improve lumbar flexion AROM to at least 55 Restore Ability to Lift Objects to Waist Yes: demonstrate proper Level mechanics to assist with occupation Decrease Subjective C/O Pain Yes: Improve pain at worst to 8/10 to improve overall QOL Improve Self Care/Self Management Yes 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 be 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 Number of Weeks 6 Increase Range of Motion Yes: Improve lumbar AROM flex to at least 70, ext & LF to 10 -15 Increase Strength Yes: Improve BLE MMT to 4+-5/5 grossly to assist with function Restore Ability to Lift Objects to Waist Yes: 20-30# with proper Level mechanics & pain 6/10 or less to assist with occupation Improve Tolerance to Work Activities Yes: report ability to work half a shift with pain 6/10 or less Improve Oswestry Score Yes: Improve score to 15 or less to improve overall QOL Decrease Subjective C/O Pain Yes: Improve pain at worst to 6/10 to improve overall QOL Outpatient Therapy Plan of Care Treatment Plan May Include Therapeutic Exercise Including Home Yes Exercise Program Manual Therapy Techniques Yes Neuromuscular Re-education Yes Therapeutic Activities to Return to Yes Previous Functional/Work Level ADL/Self Care Education Yes Mechanical Traction Yes Dry Needling Yes Thermal Modalities Yes Electrical Stimulation Yes Ultrasound/Phonophoresis Yes Iontophoresis Yes Massage Yes Eval/Re-Eval Yes Frequency Times per week 2 Duration Number of Weeks 4-6 Addendums This patient is a candidate for social No or vocational rehab? Patient/Guardian verbally acknowledges Yes understanding of treatment program and consents to further treatment? Patient/Guardian verbally acknowledges Yes understanding of diagnosis, prognosis and goals for treatment? Eval Complexity PT Charges 61001 - Moderate Complexity Shoulder/Elbow Eval Shoulder Objective Measurements Elbow Objective Measurements PHYSICIAN CERTIFICATION: I certify the specified therapy services for Cornell Joseph are required, authorized, and reviewed every 30 days.
== END 2023-12-09 15:05 | disposition home or self-care (01) ==
LOC: PT 15:00
PROVIDERS: Visit Provider Internal Medicine
DX: M54.41 Lumbago with sciatica, right side (principal); G89.29 Other chronic pain
CPT/HCPCS: 97014; 97110; 97140; 97163; G0283

== ENCOUNTER 2023-12-10 07:35 | Outpatient (CLI) | payer MEDICAID, SELFPAY ==
--- NOTE | 2023-12-10 07:36 | CA_ITS ---
APPROVED REPORT EXAM: Comprehensive 2D, Doppler, and color-flow Echocardiogram Nail Maker: Nusrat Roger CRT Ht: 5 ft 9 in Wt: 207lbs BSA: 2.10 BP: 158/79 mmHg Indications: COPD, Peripheral Edema, CAD, Hyperlipidemia, Hypertension/HDD, CAD, GERD, Etoh abuse, smoker 2D Dimensions Left Atrium 3.41 cm LVEF (Portillo's) 64.40 % LVOT 1.92 cm (M/F) 1.5-2.5 LV Volume 87.20 mL LA Volume 37.10 mL LA Volume Index 17.70 mL/m2 (M/F) 16-34 EF AP4 59.10 % EF AP2 70.5 % EF BP 64.4 % GL Strain -12.7 % M-Mode Dimensions RVDd 2.54 cm (0.9-2.6) LVDd 3.76 cm (3.5-5.7) Ao Diam 3.87 cm (2.0-3.7) LVDs 2.54 cm (3.5-5.7) IVSd 1.97 cm (0.6-1.1) PWd 0.85 cm (0.6-1.1) EF (Teich) 61.60% FS 32.40% EDV (Teich) 60.40 mL TAPSE 1.33 (<1.7) ESV (Teich) 23.20 mL LV Diastology E Decel Time 175 (160-240 msec) E/A Ratio 0.88 MED E' 9.4 (>= 7 cm/sec) MED A' 12.90 cm/s E'/MED E' Ratio 6.88 (<= 14) LAT E' 10.8 (>= 10 cm/sec) LAT A' 12.10 cm/s E/LAT E' Ratio 5.99 (<= 14) Aortic Valve LVOT Max 137.0 (70-110 cm/s) AoV Peak Patricio. 127.0 (50-130 cm/s) AO Peak GR. 6.40 mmHg Mitral Valve MV E Max Patricio. 65.0 (40-130 cm/s) MV A Velocity 73.0 (40-130 cm/s) E/A Ratio 0.88 MV Decel. Time 175 (160-240 ms) Tricuspid Valve TR P. Velocity 177.00 cm/s RAP Estimate 10.00 mmHg RVSP 22.60 mmHg Left Ventricle The left ventricle is normal size. The left ventricular systolic function is normal. The left ventricular ejection fraction is within the normal range. There is increased LV wall thickness. There is normal LV segmental wall motion. Transmitral Doppler flow pattern suggests impaired LV relaxation. LVEF is 55%. Right Ventricle Right ventricle is mildly dilated. Right ventricle is mildly hypokinetic. Atria The left atrium size is normal. The right atrium size is normal. There is no Doppler evidence of interatrial shunt. Aortic Valve The aortic valve opens well. There is no aortic valvular stenosis. No aortic regurgitation is present. Mitral Valve The mitral valve is normal in structure. No evidence of mitral valve stenosis. There is no mitral valve regurgitation noted. Tricuspid Valve The tricuspid valve leaflets are thin and pliable. Trace tricuspid regurgitation. There is insufficient TR jet to estimate RVSP. Pulmonic Valve The pulmonary valve is normal in structure. Trace pulmonic regurgitation. Great Vessels The aortic root is normal in size. The ascending aorta is normal in size. IVC is normal in size and collapses >50% with inspiration. Pericardium There is no pericardial effusion. Other Information Study Quality: Fair Conclusion Normal LV systolic function. Mild RV dilation with mild reduction in RV function. No significant valvular stenosis or regurgitation. Electronically signed by : Vielka Enciso MD 12/13/2023 14:13:33
--- NOTE | 2023-12-10 07:36 | CA_ITS ---
APPROVED REPORT Exam: Exercise Treadmill Technologist: Diana Rodriguez, Ht: 5 ft 9 in Wt: 207 lbs BSA: 2.10 m2 HR: 68 bpm BP: 148/82 mmHg Rhythm: NSR, T wave abns in leads 3, aVF Medical History Medications: Levothyroxine,,,,, HCTZ,,,,, Albuterol,,,,, MeLOXICAM,,,,, Vit D3,,,,, Vit D2,,,,, Lisinpril,,,,, Cardiac Risk Factors: HTN, Smoking Stress Test Details Test: Irvin HR Resting HR: 77 bpm Max Heart Rate (APMHR): 165 bpm Max HR Achieved: 128 bpm Target HR (85% APMHR): 140 bpm % of APMHR: 78 Recovery HR: 107 bpm HR response to stress: Blunted HR response to stress BP Resting BP: 156.0/82.0 mmHg Max BP: 214.0/70.0 mmHg Recovery BP: 214.0/70.0 mmHg BP response to stress: Abnormal hypertensive response to stress. ECG Resting ECG: NSR, T wave abns in leads 3, aVF Stress EC mm horizontal ST depression Arrhythmia: None Clinical Exercise duration: 04:21 min Highest Stage Achieved: Exercise capacity: 7.0 METs Overall Exercise Capacity for Age: Average Stress ECG Conclusion Non-diagnostic stress test due to inability to achieve target HR. During Irvin protocol pt walked 4:21 minutes. No symtpoms noted. No arrthymias noted. ST changes: [address] depression. Conclusion: Non-diagnstic stress test due to inability to achieve target HR. Elevated BP at peak stress. BP control is recommended. Equivocal ECG changes at peak stress for level of HR achieved. GXT only. Further evaluation with alternative modality for ischemia, e.g. pharmacologic nuclear stress test vs. CCTA is recommended, if clinically feasible. Test Summary REST . . . . . . . Sitting REST . . . . . . . Standing REST 04:53 0.0 0.0 77 . 156/ 82 . . Stage 1 01:00 10.0 1.7 95 . . . . Stage 1 02:00 10.0 1.7 108 . . . . Stage 1 03:00 10.0 1.7 115 . . . . Stage 2 01:00 12.0 2.5 124 . . . . Stage 2 01:21 12.0 2.5 128 . . . Stop exercise at 04:21 RECOVERY 01:00 0.0 0.0 110 . . . . RECOVERY 02:00 0.0 0.0 93 . 214/ 70 . . RECOVERY 03:00 0.0 0.0 89 . 214/ 70 . . RECOVERY 04:00 0.0 0.0 81 . 164/ 77 . . RECOVERY 05:00 0.0 0.0 81 . 155/ 73 . . RECOVERY 05:20 0.0 0.0 83 . 155/ 73 . . Electronically signed by : Vielka Enciso MD 12/14/2023 06:43:24
[2023-12-10 09:29] LABS: Chloride 100 mmol/L (98-107); Potassium 4.5 mmoL/L (3.5-5.1); Sodium 133 mmol/L (136-145)
[2023-12-10 09:32] LABS: Blood Urea Nitrogen 15 mg/dl (9-20); Estimated Glomerular Filt Rate 88 ml/min (>60); GFR (African American) 106 ML/MIN (>60)
[2023-12-10 09:33] LABS: Anion Gap 10.5 mEq/L (5-15); Calcium 9.2 mg/dl (8.4-10.2); Carbon Dioxide 27 mmol/L (22.0-30.0); Glucose 98 mg/dl (74-100)
== END 2023-12-10 23:59 | disposition home or self-care (01) ==
LOC: RT 07:36
PROVIDERS: PCP Internal Medicine; Visit Provider Physician Assistant
DX: I10 Essential (primary) hypertension (principal); R06.00 Dyspnea, unspecified; Z87.891 Personal history of nicotine dependence
CPT/HCPCS: 36415; 80048; 93017; 93018; 93306

== ENCOUNTER 2023-12-16 06:53 | Outpatient (CLI) | payer MEDICAID, SELFPAY | END 2023-12-16 23:59 | disposition home or self-care (01) | PROVIDERS: PCP Internal Medicine; Visit Provider Internal Medicine | DX: R59.9 Enlarged lymph nodes, unspecified (principal) ==

== ENCOUNTER 2024-01-18 06:44 | Outpatient (CLI) | payer MEDICAID, SELFPAY ==
--- NOTE | 2024-01-18 06:49 | NM_ITS ---
FINAL REPORT CLINICAL HISTORY: active thyroid nodules 7:00am 340 uci I 123 FINDINGS: Nuclear medicine thyroid 123 examination with 24-hour uptake and imaging. PROCEDURE: The patient received an oral dose of 340 uCi I-123. Imaging of the thyroid was performed at 24 hours. 24-hour uptake were performed. Thyroid imaging: There is mild thyroidmegaly. No hot or cold nodules are identified. IMPRESSION: No discrete nodules. Thyroid uptake: 24-hour uptake 35.6 %, slightly elevated IMPRESSION: Findings raising question of Graves disease. Reviewed, Interpreted and Dictated by Gerri Merrill MD Transcribed by Guillermina Newman Authenticated and [facility]
[2024-01-18] MEDS: ISOTOPE I 123;100 UCI TABLET 3 EACH PO (09:14)
== END 2024-01-18 23:59 | disposition home or self-care (01) ==
LOC: RAD 06:44
PROVIDERS: PCP Internal Medicine; Visit Provider Internal Medicine
DX: E04.1 Nontoxic single thyroid nodule (principal); R79.89 Other specified abnormal findings of blood chemistry
CPT/HCPCS: 78014; A9516

== ENCOUNTER 2024-07-19 09:18 | Outpatient (CLI) | payer BC, SELFPAY ==
[2024-07-19 17:48] LABS: MANUAL DIFFERENTIAL MANUAL DIFFERENTIAL (MANUAL DIFF)
[2024-07-19 18:06] LABS: Basophils # 0.1 K/mm3 (0-0.2); Basophils % 0.8 % (0.1-2.0); Eosinophils # 0.2 K/mm3 (0.0-0.4); Eosinophils % 2.9 % (0.1-12.0); Hematocrit 42.1 % (42.0-52.0); Hemoglobin 14.4 g/dL (14.1-18.0); Lymphocytes # 1.5 K/mm3 (0.7-4.5); Lymphocytes % 22.4 % (10-50); Mean Corpuscular HGB Conc 34.2 g/dL (31.8-35.4); Mean Corpuscular Volume 90.7 fl (80-94); Mean Platelet Volume 11.5 fl (7.4-10.4); Monocytes # 0.4 K/mm3 (0.1-1.0); Neutrophils # 4.4 K/mm3 (1.8-7.8); Neutrophils % 67.7 % (37.0-80.0); Platelet Count 257 K/mm3 (142-424); Red Blood Count 4.64 M/mm3 (4.60-6.20); Red Cell Distribution Width 12.3 % (11.5-17.5); White Blood Count 6.5 K/mm3 (4.8-10.8)
[2024-07-19 19:31] LABS: Eosinophils % 1 % (0-3); Lymphocytes % 24 % (10-50); Monocytes % 7 % (2-9); Neutrophils % 68 % (42-76); RBC Morphology Normal; Total Cells Counted 100
[2024-07-19 19:32] LABS: Platelet Estimate Normal
[2024-07-19 19:51] LABS: Alanine Aminotransferase 31 U/L (12-78); Albumin Level 4.6 g/dl (3.5-5.0); Albumin/Globulin Ratio 1.6 (1.1-1.8); Alkaline Phosphatase 57 U/L (38-126); Anion Gap 12.9 mEq/L (5-15); Aspartate Amino Transferase 24 U/L (17-59); Bilirubin,Total 0.6 mg/dl (0.2-1.3); Blood Urea Nitrogen 17 mg/dl (9-20); Calcium 9.9 mg/dl (8.4-10.2); Carbon Dioxide 23 mmol/L (22.0-30.0); Chloride 104 mmol/L (98-107); Chol/HDL Ratio 4.3 (1-3.5); Cholesterol 166 mg/dl (140-200); Estimated Glomerular Filt Rate 100 ml/min (>60); GFR (African American) 121 ML/MIN (>60); Globulin 2.9 g/dL (1.3-3.2); Glucose 122 mg/dl (74-100); HDL Cholesterol 39 mg/dl (40-60); Potassium 3.9 mmoL/L (3.5-5.1); Sodium 136 mmol/L (136-145); Total Protein,Serum 7.5 g/dl (6.3-8.2); Triglycerides 208 mg/dl (30-150); VLDL Cholesterol 42 mg/dL (0-40)
[2024-07-19 19:59] LABS: Free T4 (Free Thyroxine) 2.19 ng/dl (0.78-2.19)
[2024-07-19 20:07] LABS: Direct LDL Cholesterol 80.23 mg/dL (100-129)
[2024-07-19 20:24] LABS: Thyroid Stimulating Hormone 2.39 uIU/mL (0.465-4.68)
[2024-07-20 12:27] LABS: Hemoglobin A1C 5.2 % (4.0-6.0)
== END 2024-07-19 23:59 | disposition home or self-care (01) ==
LOC: LAB.DROPOF 07-20 13:31
PROVIDERS: PCP Family Medicine; Visit Provider Family Medicine
DX: E78.5 Hyperlipidemia, unspecified (principal); E03.9 Hypothyroidism, unspecified; R73.9 Hyperglycemia, unspecified
CPT/HCPCS: 80053; 80061; 83036; 84439; 84443; 85007; 85014; 85018; 85048; 85049; G0103

== ENCOUNTER 2024-07-28 06:52 | Outpatient (CLI) | payer OTHER, SELFPAY ==
--- NOTE | 2024-07-28 07:30 | NM_ITS ---
APPROVED REPORT Exam: Nuclear Stress Test Indication: SOB, HTN, High cholesterol, Former smoker, Family history Patient Location: Outpatient [place] Tech:STEPHANIE Solano, RT (R)(N) Ht: 5 ft 9 in Wt: 208 lbs BSA: 2.10 m2 BMI: 30.7 History: SOB, HTN, High cholesterol, Former smoker, Family history Cardiac Stress and Resting SPECT Images: Cardiac Stress and Resting SPECT images were obtained using technetium 99m Myoview mCi stress and 10.57 mCi at rest. Patient did not perform the Lexiscan stress test or the 2nd set of images. The patient declined to finish the test. This is a limited nuclear stress test in the setting of inability to continue the study due to patient wishes. Resting images are obtained only. Resting images demonstrate a large sized, moderate perfusion defect in the basal to mid septal and inferior septal LV ortiz. Conclusion: Patient did not perform the Lexiscan stress test or the 2nd set of images. The patient declined to finish the test. This is a limited nuclear stress test in the setting of inability to continue the study due to patient wishes. Resting images are obtained only. Resting images demonstrate a large sized, moderate perfusion defect in the basal to mid septal and inferior septal LV ortiz. Evaluation for reversibility cannot be made due to absence of stress imaging. No gated imaging in this study due to absence of stress imaging. As this was a non-diagnostic study, further evaluation is recommended with alternative modalities to rule out ischemia, if clinically appropriate and indicated. Electronically signed by : Vielka Enciso MD 07/28/2024 15:14:46
[2024-07-28] MEDS: SODIUM CHLORIDE 0.9% 10ML SYR (RAD ONLY) 10 ML IV (13:38)
[2024-07-28] MEDS: ISOTOPE MYOVIEW (PER STUDY) 1 DOSE IV (13:38)
== END 2024-07-28 23:59 | disposition home or self-care (01) ==
LOC: RAD 06:53
PROVIDERS: PCP Family Medicine; Visit Provider Family Medicine
DX: I25.10 Atherosclerotic heart disease of native coronary artery without angina pectoris (principal)
CPT/HCPCS: 78451; A9502

== ENCOUNTER 2025-01-05 16:25 | Emergency (ER) | payer OTHER, SELFPAY ==
[2025-01-05 17:41] VITALS: BP 158/50; PULSE 78; RESP 20; TEMP 36.7; O2SAT 98; BMI 31.6
--- NOTE | 2025-01-05 17:59 | CT_ITS ---
PROCEDURE INFORMATION: Exam: CT Left Lower Extremity With Contrast, Thigh Exam date and time: 01/05/2025 7:52 PM Age: 54 years old Clinical indication: Other: Concern for post-op infection TECHNIQUE: Imaging protocol: CT of the left lower extremity with intravenous contrast was performed. Exam focused on the thigh. Radiation optimization: All CT scans at this facility use at least one of these dose optimization techniques: automated exposure control; mA and/or kV adjustment per patient size (includes targeted exams where dose is matched to clinical indication); or iterative reconstruction. Contrast material: ISOVUE; Contrast volume: 120 ml; Contrast route: IV; COMPARISON: MR HIP LT WO CON 06/02/2023 4:17 PM FINDINGS: Bones/joints: Status post left hip arthroplasty. Bony contour grossly intact. No reactive changes. No periosteal fat stranding. No acute findings. Soft tissues: Poorly defined, complex fluid collection overlying vastus lateralis extending from upper thigh to suprapatellar region. Also scattered subcutaneous air collection. IMPRESSION: Complex fluid and air collection extending from proximal thigh to suprapatellar knee. Although likely postoperative changes including postoperative acute hematoma, with clinical history, can not exclude overlying infection
[2025-01-05 18:00] VITALS: BP 137/68; PULSE 77; O2SAT 98
[2025-01-05] MEDS: KETOROLAC 15MG/ML VIAL 15 MG IV (18:30)
[2025-01-05] MEDS: ACETAMINOPHEN 500MG TAB 1000 MG PO (18:30)
[2025-01-05] MEDS: MORPHINE 4MG/ML SYRINGE 4 MG IV (18:30)
[2025-01-05] MEDS: METHOCARBAMOL 500MG TABLET 500 MG PO ×2 (18:32→19:30)
--- NOTE | 2025-01-05 18:36 | ED_ITS ---
Discharge Plan Disposition Patient Disposition: Home, Self-Care Condition: Good Prescriptions Prescriptions: No Action albuterol sulfate 90 mcg/actuation HFA aerosol inhaler 2 puff IH Q6H PRN (Reason: SOA) Qty: 8.5 8RF Rx Instructions: administer with spacer atorvastatin 20 mg tablet 20 mg PO DAILY Qty: 30 5RF furosemide 40 mg tablet 40 mg PO DAILY Qty: 30 5RF levothyroxine 150 mcg tablet 150 mcg PO DAILY Qty: 90 1RF lisinopril-hydrochlorothiazide 20-25 mg tablet See Rx Instructions .ROUTE .COMPLEX Qty: 90 1RF Dose Instruction: TAKE 1 TABLET BY MOUTH ONCE DAILY Rx Instructions: TAKE 1 TABLET BY MOUTH ONCE DAILY metoprolol succinate 25 mg tablet extended release 24 hr 25 mg PO DAILY Qty: 90 1RF meloxicam 15 mg tablet 15 mg PO DAILY Qty: 90 1RF Referrals Follow up/Referrals: Pedro Pinto MD [Primary Care Provider, Family Practice] - See instructions Activity Restrictions/Add. Instructions Additional Instructions/Restrictions: Please call Dr. Calderón's clinic in the morning and they will see you in clinic tomorrow. If you have any new or worsening symptoms please return. I recommend taking tylenol for pain and using ice on the extremity to reduce swelling associated with the surgery. Clinical Impressions Clinical Impression: Post-operative pain Print Language Print Language: Yi Discharge ED Provider: Ruel Chang Adult HPI General Chief complaint: Weakness Stated complaint: HBP,just had left hip surgery [facility] 01/04/25 Time Seen by Provider: 01/05/25 17:35 Mode of Arrival: Ambulatory Source of Information: Patient and Spouse Description of Symptoms (Recalled from ER Triage Doc. by RN): pt had hip replacement done yesterday on right hip at [facility] with dr calderón, pt states today when he has changed positions he has gotten light headed. History of Present Illness HPI narrative: This is a 54-year-old male patient, with past medical history of hypertension, hypothyroidism, and COPD, who is presenting to the emergency department today for evaluation of left lower extremity pain. Patient states that he had a hip replacement yesterday at [facility] in [place]. He states that since that time he has had edema extending down the lateral aspect of the left femur and towards the knee. He is having pain in the midshaft of the left upper leg since the surgery. He does not have circumferential edema or any ecchymosis. He does not have any difficulty with bending the left knee. He does have pain with movement of the left hip which is to be expected after such a big surgery. He is unable to characterize any further details of the surgery. He has had no fevers or chills. Related Data Previous Rx's ?Medication ?Instructions ?Recorded albuterol sulfate 90 mcg/actuation 2 puff inhalation Q 6H PRN SOA #8.5 07/19/24 aerosol inhaler grams atorvastatin 20 mg tablet 20 mg PO DAILY #30 tabs 06/26 09/18 furosemide 40 mg tablet 40 mg PO DAILY #30 tabs 06/26 09/18 levothyroxine 150 mcg tablet 150 mcg PO DAILY #90 tabs 07/19/24 lisinopril 20 See Rx Instructions .Route 0 07/19/24 mg-hydrochlorothiazide 25 mg tablet .COMPLEX #90 tabs metoprolol succinate 25 mg 25 mg PO DAILY #90 tabs tablet,extended release 24 hr meloxicam 15 mg tablet 15 mg PO DAILY #90 tabs 11/26 12/19 Allergies Allergy/AdvReac Type Severity Reaction Status Date / Time tetanus and diphtheria Allergy Mild Verified 07/19/24 08:44 toxoids (TETANUS AND DIPHTHERIA TOXOIDS) [facility] Disclaimer: The information contained in this section may have been updated after the patient was seen, as this information can be updated by other users. Medical History (Updated 01/05/25 @ 21:48 by Ruel Chang DO) Hyperglycemia COPD (chronic obstructive pulmonary disease) Allergies Vitamin D deficiency Hypothyroidism Hypertension GERD (gastroesophageal reflux disease) Surgical History History of right hip replacement Family History Other Family history of cancer Lung cancer Social History Smoking Status: Never smoker alcohol intake: never substance use type: denies use current occupational status: employed Travel in the last 8 weeks?: None housing: house Have you lived/traveled outside [place] in past 30 days?: No Contact w/someone who lives/traveled outside US past 30 days?: No Exposure to someone with infectious disease in past 14 days?: No Do you have a fever (greater than 100.4 F or 38 C)?: No Have you tested positive for COVID-19?: No Exposed to someone with COVID-19 in past 14 days?: No Do you have a sore throat?: No Do you have a cough?: No Do you have any weakness?: No Do you have any diarrhea?: No Are you experiencing any unusual bleeding?: No Do you have any muscle aches/pain?: No Do you have any abdominal pain?: No Are you experiencing loss of taste or smell?: No Other Medical History Have you received the Flu Vaccine for this season: No Have you received the Pneumonia Vaccine: No ROS Obtained: Yes Systems reviewed as appropriate & no additional complaints except as documented Physical Exam General General appearance: other (See MDM) Respiratory Respiratory exam: Present other (See MDM) Cardiovascular Cardiovascular exam: Present other (See MDM) Neurological Exam Neurological exam: Present other (See MDM) Medical Decision Making Medical Records Medical records reviewed: Yes I reviewed the patient's medical records. Screening: Per USPSTF and CDC recommendations, given the prevalence of disease in our region, it is our hospital?s policy to screen for HIV and viral Hepatitis for all patients aged 18 and over and those with ongoing risk factors. Ashish Inquiry Pt receiving controlled substance: No Ashish was queried for this patient: No Vital Signs: 01/05/25 17:41 01/05/25 18:00 01/05/25 21:55 Temperature 98.1 F 98.1 F Temperature Source Oral Oral Pulse Rate 77 62 Pulse Rate [Left Radial] 78 Respiratory Rate 20 16 Blood Pressure 137/68 141/70 H Blood Pressure [Right Arm] 158/50 H Blood Pressure Mean [Right Arm] 86 Blood Pressure Position Sitting 02 Sat by Pulse Oximetry 98 98 Oxygen Delivery Method Room Air Room Air Lab Data Lab Results 01/05/25 18:30: WBC 9.9, RBC 3.88 L, Hgb 12.3 L, Hct 36.1 L, MCV 93.0, MCH 31.7 H, MCHC 34.1, RDW 12.4, Plt Count 216, MPV 10.6 H, Neut % (Auto) 72.7, Lymph % (Auto) 15.0, [place] % (Auto) 11.5 H, Eos % (Auto) 0.2, Baso % (Auto) 0.2, Neut # (Auto) 7.2, Lymph # (Auto) 1.5, [place] # (Auto) 1.1 H, Eos # (Auto) 0.0, Baso # (Auto) 0.0, ESR 40 H, Sodium 133 L, Potassium 4.1, Chloride 98, Carbon Dioxide 27, Anion Gap 12.1, BUN 19, Creatinine 1.20, Estimated Creat Clear 94, Estimated GFR 63, Est GFR ( Amer) 76, Glucose 113 H, Calcium 9.4, Total Bilirubin 0.8, AST 44, ALT 27, Alkaline Phosphatase 56, C-Reactive Protein 152.0 H, Total Protein 7.7, Albumin 4.5, Globulin 3.2, Albumin/Globulin Ratio 1.4 01/05/25 18:30 01/05/25 18:30 Orders (Tests/Meds): ED MEDICATIONS Discontinued Medications Generic Name Dose Route Start Last Admin Trade Name Amina PRN Reason Stop Dose Admin Acetaminophen 1,000 mg 01/05/25 18:00 01/05/25 18:30 Acetaminophen 500mg Tab PO 01/05/25 18:01 1,000 mg ONCE ONE Administration Iopamidol 120 ml 01/05/25 19:52 01/05/25 19:53 Iopamidol-370 (76%);100ml Bottle IV 01/05/25 19:53 120 ml ONCE ONE Administration Ketorolac Tromethamine 15 mg 01/05/25 18:00 01/05/25 18:30 Ketorolac 15mg/Ml Vial IV 01/05/25 18:01 15 mg ONCE ONE Administration Methocarbamol 500 mg 01/05/25 21:00 01/05/25 18:32 Methocarbamol 500mg Tablet PO 02/04/25 20:59 500 mg BID YESENIA Administration Methocarbamol 500 mg 01/05/25 19:00 01/05/25 19:30 Methocarbamol 500mg Tablet PO 01/05/25 19:01 500 mg ONCE ONE Administration Morphine Sulfate 4 mg 01/05/25 18:00 01/05/25 18:30 Morphine 4mg/Ml Syringe IV 01/05/25 18:01 4 mg ONCE ONE Administration Sodium Chloride 10 ml 01/05/25 19:52 01/05/25 19:53 Sodium Chloride 0.9% 10ml Syr (Rad Only) IV 01/05/25 19:53 10 ml ONCE ONE Administration Sodium Chloride 100 ml 01/05/25 19:52 01/05/25 19:53 0.9 % Sodium Chloride 50 Ml Vial IV 01/05/25 19:53 100 ml ONCE ONE Administration ORDERS Category Date Time Status CT femur LT w con Stat Cat Scan 01/05/25 17:59 Completed CBC w/Auto Diff [Complete Blood Count Auto Diff] Stat Lab 01/05/25 18:30 Completed CMP [Comprehensive Metabolic Panel] Stat Lab 01/05/25 18:30 Completed CRP [C-Reactive Protein] Stat Lab 01/05/25 18:30 Completed ESR [Erythrocyte Sedimentation Rate] Stat Lab 01/05/25 18:30 Completed Medical Decision Narrative: In summary, this is a 54-year-old male patient who is presenting to the emergency department today for evaluation of left upper leg pain since having a hip replacement at [facility] in [place] yesterday. Comorbidities include a past medical history of hypertension, hypothyroidism, and COPD. On initial evaluation of the patient they were resting comfortably in no acute distress and nontoxic in appearance. They are hemodynamically stable, saturating well room air, and are neurologically intact. On physical examination the patient is appropriately alert and interactive with a GCS of 15. Heart and lungs are clear to auscultation bilaterally. He has no abdominal tenderness to palpation. He does have a well-healing surgical scar over the anterolateral aspect of the left hip with no evidence of point dehiscence or wound infection. No streaking erythema. He does have swelling and tenderness about the midshaft and distal femur on the lateral aspect. He has full range of motion of the left knee with no overlying erythema and no pain in the knee with range of motion. He does however experience pain in the midshaft of the left femur with flexion of the knee. Differential diagnosis includes postoperative seroma, postoperative hematoma, routine postoperative gravity dependent edema, hardware malfunction, periprosthetic fracture, postoperative infection, among others. I have a low suspicion for deep vein thrombosis given that there is no circumferential swelling of the upper or lower leg. Initial workup to include a CT scan of the left lower extremity as well as hematologic labs. Returned the patient's pain emergency department with 1 g of acetaminophen, 15 mg of Toradol, 500 mg Robaxin, and 4 mg of morphine. Labs personally interpreted by me demonstrate no actionable abnormalities. The patient does not have a leukocytosis. He does have an elevated CRP at 152, however this is to be expected in the postoperative period. We did obtain a CT scan of the left femur with IV contrast. There is evidence of a hematoma as well as postsurgical gas in the soft tissues. This is very likely postoperative per the CT read, however infection would be difficult to exclude. I feel that infection is very unlikely within 24 hours of surgery. I have discussed this case directly with the orthopedic surgeon on-call for Dr. Calderón at [facility]. He states that this is very routine and common gravity dependent swelling that occurred after orthopedic surgery on the hip. He has requested that the patient call their office in the morning and they will get him into the clinic tomorrow morning to be evaluated by one of the orthopedic providers. Patient has remained afebrile and hemodynamically stable throughout the duration of his stay in the emergency department. His pain is controlled at this time. He acknowledges understanding and importance of calling the orthopedic clinic for follow-up in the morning. At this time all questions have and answered and all parties are agreeable with the decision to discharge home. Critical Care Critical Care Time Critical Care Time: No
[2025-01-05 18:48] LABS: Hematocrit 36.1 % (42.0-52.0); Hemoglobin 12.3 g/dL (14.1-18.0); Immature Granulocytes % 0.4 %; Mean Corpuscular HGB Conc 34.1 g/dL (31.8-35.4); Mean Corpuscular Hemoglobin 31.7 pg (27.0-31.2); Mean Corpuscular Volume 93.0 fl (80-94); Nucleated Red Blood Cells % 0 %; Platelet Count 216 K/mm3 (142-424); Red Blood Count 3.88 M/mm3 (4.60-6.20); Red Cell Distribution Width-SD 42.2 fL; White Blood Count 9.9 K/mm3 (4.8-10.8)
[2025-01-05 18:53] LABS: Albumin Level 4.5 g/dl (3.5-5.0); Chloride 98 mmol/L (98-107)
[2025-01-05 18:54] LABS: Potassium 4.1 mmoL/L (3.5-5.1); Sodium 133 mmol/L (136-145)
[2025-01-05 18:56] LABS: Alanine Aminotransferase 27 U/L (12-78); Blood Urea Nitrogen 19 mg/dl (9-20); Creatinine Clearance Estimated 94 mL/min (50-200); Creatinine,Serum 1.20 mg/dl (0.66-1.25); Estimated Glomerular Filt Rate 63 ml/min (>60); GFR (African American) 76 ML/MIN (>60)
[2025-01-05 18:57] LABS: Albumin/Globulin Ratio 1.4 (1.1-1.8); Alkaline Phosphatase 56 U/L (38-126); Anion Gap 12.1 mEq/L (5-15); Aspartate Amino Transferase 44 U/L (17-59); Bilirubin,Total 0.8 mg/dl (0.2-1.3); Calcium 9.4 mg/dl (8.4-10.2); Carbon Dioxide 27 mmol/L (22.0-30.0); Globulin 3.2 g/dL (1.3-3.2); Glucose 113 mg/dl (74-100); Total Protein,Serum 7.7 g/dl (6.3-8.2)
[2025-01-05 19:08] LABS: C-Reactive Protein 152.0 mg/L (0-4)
[2025-01-05] MEDS: SODIUM CHLORIDE 0.9% 10ML SYR (RAD ONLY) 10 ML IV (19:53)
[2025-01-05] MEDS: 0.9 % SODIUM CHLORIDE 50 ML VIAL 100 ML IV (19:53)
[2025-01-05] MEDS: IOPAMIDOL-370 (76%);100ML BOTTLE 120 ML IV (19:53)
[2025-01-05 21:55] VITALS: BP 141/70; PULSE 62; RESP 16; TEMP 36.7; O2SAT 100
== END 2025-01-05 21:56 | disposition home or self-care (01) ==
PROVIDERS: Emergency Provider Student in an Organized Health Care Education/Training Program; PCP Family Medicine
DX: G89.18 Other acute postprocedural pain (principal); I10 Essential (primary) hypertension
CPT/HCPCS: 73701; 80053; 85025; 85651; 86140; 96374; 96375; 99283; 99285; J1885; J2270; Q9967

== ENCOUNTER 2025-01-12 14:31 | Outpatient (RCR) | payer OTHER, SELFPAY | END 2025-01-12 23:59 | disposition home or self-care (01) | LOC: PT 14:31 | PROVIDERS: Visit Provider Orthopaedic Surgery | DX: Z47.89 Encounter for other orthopedic aftercare (principal); Z96.641 Presence of right artificial hip joint | CPT/HCPCS: 97161 ==